=== PATIENT | female | born 1955 | race Hispanic/Latino ===

== ENCOUNTER 2017-08-08 17:55 | Inpatient (IN) | payer SELFPAY ==
[~2017-08-08] VITALS: Ht 172.7 cm; Wt 115.5 kg
[2017-08-08] MEDS ORDERED: SODIUM CHLORIDE 0.9% 1000ML 1,000 ML IV STA (18:43)
[2017-08-08] MEDS ORDERED: ASPIRIN 81 MG CHEW TAB PO ONE (18:45)
[2017-08-08] MEDS ORDERED: CEFTRIAXONE SOD 1 GM VIAL IM ONE (18:45)
[2017-08-08 19:35] LABS: BILIRUBIN,URINE 1+ (NEGATIVE); COLOR,URINE YELLOW (YELLOW); KETONES,URINE NEGATIVE (NEGATIVE); LEUKOCYTE ESTERASE ,URINE 1+ (NEGATIVE); URINE UROBILINOGEN 8 mg/dL (0.2 - 1)
[2017-08-08 19:36] LABS: CLARITY,URINE SL CLOUDY (CLEAR); NITRITE,URINE POSITIVE (NEGATIVE); PROTEIN,URINE DIPSTICK 2+ (NEGATIVE)
[2017-08-08 19:51] LABS: BACTERIA,URINE MANY /HPF; EPITHELIAL CELLS,URINE FEW /LPF; MUCUS,URINE FEW (RARE)
--- NOTE | 2017-08-08 21:56 | Diagnostic Imaging Report ---
EXAM: CHEST SINGLE (PORTABLE), AP 1 view INDICATION: Fall, fever COMPARISON: None FINDINGS: LINES/TUBES: None LUNGS: No consolidations or edema. PLEURA: No effusions or pneumothorax. HEART AND MEDIASTINUM: Normal size and contour. BONES AND SOFT TISSUES: No acute findings. IMPRESSION: No evidence of pneumonia. Signed by: Dr. Abbey Castelan M.D. on 08/08/2017 9:52 PM
[2017-08-08 22:44] LABS: BASOPHILS % 0.2 % (0.0-1.0); HEMATOCRIT 40.2 % (34.2-44.1); HEMOGLOBIN 13.4 g/dL (12.0-16.0); LYMPHOCYTES % 5.2 % (18.0-39.1); MEAN CORPUSCULAR HEMOGLOBIN 29.3 pg (28-32); MEAN CORPUSCULAR HGB CONC 33.3 g/dL (31-35); MONOCYTES # (AUTO) 1.4 (0.2-0.8); MONOCYTES % 7.7 % (4.4-11.3); NEUTROPHILS # (AUTO) 15.9 (2.1-6.9); NEUTROPHILS % 86.4 % (38.7-80.0); PLATELET COUNT 185 x10e3/uL (140-360); RED BLOOD COUNT 4.57 x10e6/uL (3.6-5.1)
[2017-08-08 22:59] LABS: INR 1.17
[2017-08-08 23:13] LABS: ALANINE AMINOTRANSFERASE 24 IU/L (0-55); ALBUMIN 3.4 g/dL (3.5-5.0); ALBUMIN/GLOBULIN RATIO 0.8 (0.8-2.0); ALKALINE PHOSPHATASE 120 IU/L (40-150); AMYLASE 31 U/L (25-125); ANION GAP 17.2 mmol/L (8-16); BLOOD UREA NITROGEN 25 mg/dL (7-26); BUN/CREATININE RATIO 18 (6-25); CALCIUM 9.8 mg/dL (8.4-10.2); CARBON DIOXIDE 22 mmol/L (22-29); CHLORIDE 99 mmol/L (98-107); CREATINE KINASE 2355 IU/L (29-168); CREATININE, SERUM 1.36 mg/dL (0.57-1.11); EST GLOMERULAR FILTRATION RATE 39 ML/MIN (60-); GLUCOSE 125 mg/dL (74-118); POTASSIUM 3.2 mmol/L (3.5-5.1); SODIUM 135 mmol/L (136-145)
[2017-08-08 23:17] LABS: LIPASE < 4 U/L (8-78)
[2017-08-08] MEDS ORDERED: KCL 20MEQ/.9 SOD CHL 1,000 ML IV ONE (23:30)
[2017-08-09] VITALS (8 sets, daily range): BP systolic 116–187; BP diastolic 55–80
--- NOTE | 2017-08-09 00:51 | Diagnostic Imaging Report ---
EXAM: CT ABDOMEN AND PELVIS without IV CONTRAST INDICATION: Fell down this morning, left-sided abdominal pain COMPARISON: None TECHNIQUE: The abdomen and pelvis were scanned using a multidetector helical scanner. Coronal and sagittal reformations were obtained. Routine protocol performed. IV Contrast: None Oral Contrast: Water CTDIvol has been reviewed. It is below the limits set by the Radiation Protocol Committee (RPC). FINDINGS: LOWER THORAX: No consolidations LIVER: No masses BILIARY: Normal gallbladder. No ductal dilation. SPLEEN: No masses PANCREAS: No masses ADRENALS: No nodules RIGHT KIDNEY: No nephroureterolithiasis or hydronephrosis. LEFT KIDNEY: No nephroureterolithiasis or hydronephrosis. Nonspecific left perinephric fat stranding. GI TRACT: Focal thickening of the proximal sigmoid colon. Colonic diverticulosis, predominantly of the descending colon and sigmoid colon. Surgical changes of appendectomy. VESSELS: Mild atherosclerotic changes of the abdominal aorta without aneurysm. PERITONEUM/RETROPERITONEUM: No free air or fluid. Surgical changes of ventral hernia repair. LYMPH NODES: No lymphadenopathy REPRODUCTIVE ORGANS: Normal BLADDER: Normal SOFT TISSUES: Normal BONES: No suspicious bone lesions. IMPRESSION: Asymmetric fat stranding around the left kidney is nonspecific. Please correlate for possible pyelonephritis. Nonspecific focal thickening of the sigmoid colon. The differential includes chronic diverticulitis or mass. Recommend correlation with patient's history and possible nonemergent GI consult. There is no evidence of acute diverticulitis. No evidence of acute traumatic injury to the abdomen or pelvis. Signed by: Dr. Abbey Castelan M.D. on 08/09/2017 12:48 AM
[2017-08-09] MEDS ORDERED: MORPHINE SULFATE 2 MG/ML SYR IV PRN (01:00)
[2017-08-09] MEDS ORDERED: ONDANSETRON HCL INJ 2 MG/ML VIAL IV PRN (01:00)
[2017-08-09] MEDS ORDERED: DEXTROSE 50% SYRINGE 50 ML IV PRN (01:15)
[2017-08-09] MEDS: HYDRALAZINE HCL 20 MG/ML VIAL IV PRN ×4 (02:30→22:00)
[2017-08-09] MEDS: ACETAMINOPHEN 325 MG TAB PO PRN ×2 (02:35→09:12)
[2017-08-09] MEDS: FAMOTIDINE 20 MG/2 ML VIAL IV SCH ×2 (02:35→09:12)
[2017-08-09] MEDS: METRONIDAZOLE 500MG/NS 100ML 100 ML IV SCH ×4 (05:41→23:42)
[2017-08-09 07:29] LABS: CREATINE KINASE MB 6.1 ng/mL (0-5.0)
[2017-08-09] MEDS: INSULIN REGULAR, HUMAN 100 UNIT/1 ML 3ML VIAL SQ SCH ×4 (07:30→21:00)
[2017-08-09] MEDS: ASPIRIN 81 MG ENTERIC COATED PO SCH (08:06)
[2017-08-09] MEDS: SODIUM CHLORIDE 0.9% 1000ML 1,000 ML IV SCH (09:06)
[2017-08-09 16:05] LABS: CREATINE KINASE MB 7.6 ng/mL (0-5.0)
[2017-08-09] MEDS: FAMOTIDINE 20 MG TAB PO SCH (17:04)
[2017-08-09] MEDS: LISINOPRIL 10 MG TAB PO SCH (17:04)
[2017-08-09] MEDS: METFORMIN HCL 500 MG TAB PO SCH (17:04)
[2017-08-09 22:58] LABS: CREATINE KINASE MB 6.9 ng/mL (0-5.0)
[2017-08-10] VITALS (7 sets, daily range): BP systolic 156–182; BP diastolic 69–82
[2017-08-10] MEDS: SODIUM CHLORIDE 0.9% 1000ML 1,000 ML IV SCH ×3 (01:43→15:32)
[2017-08-10] MEDS: ACETAMINOPHEN 325 MG TAB PO PRN (01:43)
[2017-08-10] MEDS: METRONIDAZOLE 500MG/NS 100ML 100 ML IV SCH ×3 (05:54→18:12)
[2017-08-10] MEDS: HYDRALAZINE HCL 20 MG/ML VIAL IV PRN (06:27)
[2017-08-10 06:51] LABS: BASOPHILS % 0.2 % (0.0-1.0); EOSINOPHILS % 0.1 % (0.0-6.0); HEMATOCRIT 34.6 % (34.2-44.1); HEMOGLOBIN 11.2 g/dL (12.0-16.0); LYMPHOCYTES # (AUTO) 0.6 (1.0-3.2); LYMPHOCYTES % 7.7 % (18.0-39.1); MEAN CORPUSCULAR HEMOGLOBIN 29.2 pg (28-32); MEAN CORPUSCULAR HGB CONC 32.4 g/dL (31-35); MEAN CORPUSCULAR VOLUME 90.3 fL (81-99); MONOCYTES # (AUTO) 0.7 (0.2-0.8); MONOCYTES % 8.3 % (4.4-11.3); NEUTROPHILS # (AUTO) 6.8 (2.1-6.9); NEUTROPHILS % 83.2 % (38.7-80.0); PLATELET COUNT 155 x10e3/uL (140-360); RED BLOOD COUNT 3.83 x10e6/uL (3.6-5.1); RED CELL DISTRIBUTION WIDTH 13.5 % (11.7-14.4)
[2017-08-10 07:12] LABS: ALBUMIN 2.5 g/dL (3.5-5.0); ALBUMIN/GLOBULIN RATIO 0.7 (0.8-2.0); ANION GAP 12.3 mmol/L (8-16); CALCIUM 8.7 mg/dL (8.4-10.2); CHOL/HDL RATIO 3.9 (3.0-3.6); CREATININE, SERUM 1.18 mg/dL (0.57-1.11); POTASSIUM 3.3 mmol/L (3.5-5.1)
[2017-08-10] MEDS: INSULIN REGULAR, HUMAN 100 UNIT/1 ML 3ML VIAL SQ SCH ×4 (07:30→20:54)
[2017-08-10 07:34] LABS: MAGNESIUM 1.5 MG/DL (1.3-2.1)
[2017-08-10] MEDS: FAMOTIDINE 20 MG TAB PO SCH ×2 (07:45→17:00)
[2017-08-10] MEDS: METFORMIN HCL 500 MG TAB PO SCH ×2 (08:30→18:12)
[2017-08-10] MEDS: LISINOPRIL 10 MG TAB PO SCH ×2 (09:18→18:12)
[2017-08-10] MEDS: CEFTRIAXONE SOD 1 GM VIAL IV SCH ×2 (09:18→20:54)
[2017-08-10] MEDS: ASPIRIN 81 MG ENTERIC COATED PO SCH (09:18)
[2017-08-10] MEDS ORDERED: POTASSIUM CHLORIDE 20 MEQ TAB CR PO ONE (10:25)
[2017-08-11] VITALS (9 sets, daily range): BP systolic 160–192; BP diastolic 68–83
[2017-08-11] MEDS: SODIUM CHLORIDE 0.9% 1000ML 1,000 ML IV SCH (01:58)
[2017-08-11] MEDS: METRONIDAZOLE 500MG/NS 100ML 100 ML IV SCH ×4 (01:59→12:22)
[2017-08-11] MEDS: INSULIN REGULAR, HUMAN 100 UNIT/1 ML 3ML VIAL SQ SCH ×4 (07:30→20:22)
[2017-08-11] MEDS: FAMOTIDINE 20 MG TAB PO SCH ×2 (07:30→16:30)
[2017-08-11] MEDS: METFORMIN HCL 500 MG TAB PO SCH ×2 (08:36→17:00)
[2017-08-11] MEDS: LISINOPRIL 10 MG TAB PO SCH ×2 (09:41→17:00)
[2017-08-11] MEDS: CEFTRIAXONE SOD 1 GM VIAL IV SCH ×2 (09:41→20:39)
[2017-08-11] MEDS: ASPIRIN 81 MG ENTERIC COATED PO SCH (09:41)
[2017-08-11] MEDS: HYDRALAZINE HCL 20 MG/ML VIAL IV PRN ×2 (11:15→20:40)
[2017-08-11 13:13] LABS: BASOPHILS % 0.4 % (0.0-1.0); EOSINOPHILS % 0.7 % (0.0-6.0); HEMATOCRIT 37.4 % (34.2-44.1); HEMOGLOBIN 12.2 g/dL (12.0-16.0); LYMPHOCYTES # (AUTO) 0.8 (1.0-3.2); LYMPHOCYTES % 14.9 % (18.0-39.1); MEAN CORPUSCULAR HEMOGLOBIN 28.7 pg (28-32); MEAN CORPUSCULAR HGB CONC 32.6 g/dL (31-35); MONOCYTES # (AUTO) 0.7 (0.2-0.8); MONOCYTES % 12.6 % (4.4-11.3); PLATELET COUNT 177 x10e3/uL (140-360); RED BLOOD COUNT 4.25 x10e6/uL (3.6-5.1); RED CELL DISTRIBUTION WIDTH 13.6 % (11.7-14.4)
[2017-08-11 13:34] LABS: ALANINE AMINOTRANSFERASE 49 IU/L (0-55); ALBUMIN 2.7 g/dL (3.5-5.0); ALBUMIN/GLOBULIN RATIO 0.7 (0.8-2.0); ALKALINE PHOSPHATASE 97 IU/L (40-150); ANION GAP 15.4 mmol/L (8-16); BLOOD UREA NITROGEN 17 mg/dL (7-26); BUN/CREATININE RATIO 21 (6-25); CALCIUM 8.8 mg/dL (8.4-10.2); CARBON DIOXIDE 18 mmol/L (22-29); CHLORIDE 110 mmol/L (98-107); CREATINE KINASE 1497 IU/L (29-168); CREATININE, SERUM 0.82 mg/dL (0.57-1.11); EST GLOMERULAR FILTRATION RATE > 60 ML/MIN (60-); GLUCOSE 94 mg/dL (74-118); POTASSIUM 3.4 mmol/L (3.5-5.1); SODIUM 140 mmol/L (136-145)
[2017-08-11] MEDS ORDERED: POTASSIUM CHLORIDE 20 MEQ TAB CR PO ONE (17:30)
[2017-08-12] MEDS: HYDRALAZINE HCL 20 MG/ML VIAL IV PRN ×2 (03:42→20:50)
[2017-08-12 03:46] VITALS: BP 180/95
[2017-08-12 07:01] LABS: BASOPHILS % 0.3 % (0.0-1.0); EOSINOPHILS # (AUTO) 0.1 (0.0-0.4); HEMATOCRIT 35.4 % (34.2-44.1); HEMOGLOBIN 11.7 g/dL (12.0-16.0); LYMPHOCYTES # (AUTO) 1.1 (1.0-3.2); LYMPHOCYTES % 16.8 % (18.0-39.1); MEAN CORPUSCULAR HEMOGLOBIN 28.9 pg (28-32); MEAN CORPUSCULAR HGB CONC 33.1 g/dL (31-35); MEAN CORPUSCULAR VOLUME 87.4 fL (81-99); MONOCYTES # (AUTO) 0.6 (0.2-0.8); MONOCYTES % 10.1 % (4.4-11.3); NEUTROPHILS # (AUTO) 4.5 (2.1-6.9); NEUTROPHILS % 71.3 % (38.7-80.0); PLATELET COUNT 198 x10e3/uL (140-360); RED BLOOD COUNT 4.05 x10e6/uL (3.6-5.1); RED CELL DISTRIBUTION WIDTH 13.7 % (11.7-14.4)
[2017-08-12 07:23] VITALS: BP 182/77
[2017-08-12] MEDS: FAMOTIDINE 20 MG TAB PO SCH ×2 (07:30→16:30)
[2017-08-12] MEDS: INSULIN REGULAR, HUMAN 100 UNIT/1 ML 3ML VIAL SQ SCH ×4 (07:30→20:51)
[2017-08-12 07:39] LABS: ALANINE AMINOTRANSFERASE 44 IU/L (0-55); ALBUMIN 2.6 g/dL (3.5-5.0); ALBUMIN/GLOBULIN RATIO 0.7 (0.8-2.0); ALKALINE PHOSPHATASE 90 IU/L (40-150); ANION GAP 11.3 mmol/L (8-16); BLOOD UREA NITROGEN 17 mg/dL (7-26); BUN/CREATININE RATIO 21 (6-25); CALCIUM 8.8 mg/dL (8.4-10.2); CARBON DIOXIDE 22 mmol/L (22-29); CHLORIDE 114 mmol/L (98-107); CREATINE KINASE 751 IU/L (29-168); EST GLOMERULAR FILTRATION RATE > 60 ML/MIN (60-); GLUCOSE 93 mg/dL (74-118); POTASSIUM 3.3 mmol/L (3.5-5.1); SODIUM 144 mmol/L (136-145)
[2017-08-12] MEDS: METFORMIN HCL 500 MG TAB PO SCH ×2 (08:30→17:08)
[2017-08-12 08:54] VITALS: BP 182/20
[2017-08-12] MEDS: CEFTRIAXONE SOD 1 GM VIAL IV SCH ×2 (09:21→20:50)
[2017-08-12] MEDS: ASPIRIN 81 MG ENTERIC COATED PO SCH (09:22)
[2017-08-12] MEDS: LISINOPRIL 10 MG TAB PO SCH ×2 (09:22→17:08)
[2017-08-12] MEDS ORDERED: POTASSIUM CHLORIDE 10 MEQ TABCR PO ONE (10:30)
[2017-08-12] MEDS ORDERED: FUROSEMIDE INJ 10 MG/ML 4 ML VIAL IV ONE (11:00)
[2017-08-12 12:00] VITALS: BP 202/84
[2017-08-12 20:33] VITALS: BP 194/88
[2017-08-13] VITALS (7 sets, daily range): BP systolic 159–212; BP diastolic 71–93
[2017-08-13] MEDS: HYDRALAZINE HCL 20 MG/ML VIAL IV PRN (05:15)
[2017-08-13 07:09] LABS: BASOPHILS % 0.5 % (0.0-1.0); EOSINOPHILS # (AUTO) 0.1 (0.0-0.4); EOSINOPHILS % 1.8 % (0.0-6.0); HEMATOCRIT 35.9 % (34.2-44.1); HEMOGLOBIN 11.7 g/dL (12.0-16.0); LYMPHOCYTES % 18.4 % (18.0-39.1); MEAN CORPUSCULAR HGB CONC 32.6 g/dL (31-35); MEAN CORPUSCULAR VOLUME 89.1 fL (81-99); MONOCYTES # (AUTO) 0.6 (0.2-0.8); MONOCYTES % 10.3 % (4.4-11.3); NEUTROPHILS # (AUTO) 3.8 (2.1-6.9); NEUTROPHILS % 67.9 % (38.7-80.0); PLATELET COUNT 215 x10e3/uL (140-360); RED BLOOD COUNT 4.03 x10e6/uL (3.6-5.1); RED CELL DISTRIBUTION WIDTH 13.6 % (11.7-14.4)
[2017-08-13] MEDS: INSULIN REGULAR, HUMAN 100 UNIT/1 ML 3ML VIAL SQ SCH ×4 (07:30→21:00)
[2017-08-13 07:40] LABS: ANION GAP 14.4 mmol/L (8-16); BLOOD UREA NITROGEN 19 mg/dL (7-26); BUN/CREATININE RATIO 23 (6-25); CALCIUM 8.7 mg/dL (8.4-10.2); CARBON DIOXIDE 22 mmol/L (22-29); CHLORIDE 113 mmol/L (98-107); CREATININE, SERUM 0.83 mg/dL (0.57-1.11); EST GLOMERULAR FILTRATION RATE > 60 ML/MIN (60-); GLUCOSE 96 mg/dL (74-118); POTASSIUM 3.4 mmol/L (3.5-5.1); SODIUM 146 mmol/L (136-145)
[2017-08-13] MEDS: CEFTRIAXONE SOD 1 GM VIAL IV SCH ×2 (07:57→20:41)
[2017-08-13] MEDS: FAMOTIDINE 20 MG TAB PO SCH ×2 (07:57→16:11)
[2017-08-13] MEDS: ASPIRIN 81 MG ENTERIC COATED PO SCH (07:57)
[2017-08-13] MEDS: METFORMIN HCL 500 MG TAB PO SCH ×2 (07:57→16:11)
[2017-08-13] MEDS: LISINOPRIL 10 MG TAB PO SCH (07:58)
[2017-08-13 08:26] LABS: EOSINOPHILS % (MANUAL) 2 % (0-7); LYMPHOCYTES % (MANUAL) 16 % (19-48); MONOCYTES % (MANUAL) 5 % (3.4-9.0); NEUTROPHILS % (MANUAL) 73 % (40-74)
[2017-08-13 08:27] LABS: ANISOCYTOSIS SLIG; PLATELET ESTIMATE ADEQUATE; PLATELET MORPHOLOGY COMMENT NORMAL; POIKILOCYTOSIS SLIGHT; RBC MORPHOLOGY COMMENT NORMAL
[2017-08-13] MEDS ORDERED: CLONIDINE HCL 0.1 MG TAB PO ONE (10:45)
[2017-08-13] MEDS: HYDRALAZINE HCL 25 MG TAB PO SCH ×2 (15:00→20:42)
[2017-08-13] MEDS: LISINOPRIL 20 MG TAB PO SCH (16:11)
[2017-08-14] VITALS (8 sets, daily range): BP systolic 137–280; BP diastolic 63–105
[2017-08-14] MEDS: HYDRALAZINE HCL 20 MG/ML VIAL IV PRN (05:59)
[2017-08-14 06:56] LABS: BASOPHILS % 0.5 % (0.0-1.0); EOSINOPHILS # (AUTO) 0.2 (0.0-0.4); EOSINOPHILS % 2.9 % (0.0-6.0); HEMATOCRIT 35.5 % (34.2-44.1); HEMOGLOBIN 11.5 g/dL (12.0-16.0); LYMPHOCYTES # (AUTO) 1.3 (1.0-3.2); LYMPHOCYTES % 20.8 % (18.0-39.1); MEAN CORPUSCULAR HEMOGLOBIN 28.9 pg (28-32); MEAN CORPUSCULAR HGB CONC 32.4 g/dL (31-35); MEAN CORPUSCULAR VOLUME 89.2 fL (81-99); MONOCYTES # (AUTO) 0.6 (0.2-0.8); MONOCYTES % 8.9 % (4.4-11.3); NEUTROPHILS # (AUTO) 4.1 (2.1-6.9); NEUTROPHILS % 66.4 % (38.7-80.0); PLATELET COUNT 225 x10e3/uL (140-360); RED BLOOD COUNT 3.98 x10e6/uL (3.6-5.1); RED CELL DISTRIBUTION WIDTH 13.5 % (11.7-14.4)
[2017-08-14 07:11] LABS: ANION GAP 12.5 mmol/L (8-16); BLOOD UREA NITROGEN 19 mg/dL (7-26); BUN/CREATININE RATIO 23 (6-25); CALCIUM 8.7 mg/dL (8.4-10.2); CARBON DIOXIDE 24 mmol/L (22-29); CHLORIDE 111 mmol/L (98-107); CREATININE, SERUM 0.83 mg/dL (0.57-1.11); EST GLOMERULAR FILTRATION RATE > 60 ML/MIN (60-); GLUCOSE 92 mg/dL (74-118); POTASSIUM 3.5 mmol/L (3.5-5.1); SODIUM 144 mmol/L (136-145)
[2017-08-14] MEDS: INSULIN REGULAR, HUMAN 100 UNIT/1 ML 3ML VIAL SQ SCH ×4 (07:30→20:27)
[2017-08-14] MEDS: HYDRALAZINE HCL 25 MG TAB PO SCH ×3 (07:35→20:40)
[2017-08-14] MEDS: LISINOPRIL 20 MG TAB PO SCH ×2 (07:35→16:12)
[2017-08-14] MEDS: FAMOTIDINE 20 MG TAB PO SCH ×2 (08:14→15:46)
[2017-08-14] MEDS: ASPIRIN 81 MG ENTERIC COATED PO SCH (08:15)
[2017-08-14] MEDS: CEFTRIAXONE SOD 1 GM VIAL IV SCH ×2 (08:15→20:40)
[2017-08-14] MEDS: METFORMIN HCL 500 MG TAB PO SCH ×2 (08:15→16:11)
[2017-08-14 08:27] LABS: EOSINOPHILS % (MANUAL) 1 % (0-7); LYMPHOCYTES % (MANUAL) 19 % (19-48); MONOCYTES % (MANUAL) 9 % (3.4-9.0); NEUTROPHILS % (MANUAL) 67 % (40-74); PLATELET ESTIMATE ADEQUATE; PLATELET MORPHOLOGY COMMENT NORMAL; RBC MORPHOLOGY COMMENT NORMAL
[2017-08-14] MEDS: METOPROLOL TARTRATE 25 MG TAB PO SCH ×2 (08:30→21:00)
[2017-08-14] MEDS: CLONIDINE HCL 0.2 MG TAB PO SCH ×3 (08:30→20:40)
[2017-08-14] MEDS ORDERED: AMLODIPINE BESYLATE 5 MG TAB PO SCH (09:00)
[2017-08-15] VITALS: BP 133/60
[2017-08-15 04:00] VITALS: BP 139/65
[2017-08-15] MEDS: INSULIN REGULAR, HUMAN 100 UNIT/1 ML 3ML VIAL SQ SCH ×3 (07:30→16:11)
[2017-08-15 07:46] VITALS: BP 169/77
[2017-08-15] MEDS: FAMOTIDINE 20 MG TAB PO SCH ×2 (07:50→16:37)
[2017-08-15] MEDS: METFORMIN HCL 500 MG TAB PO SCH ×2 (07:50→16:37)
[2017-08-15] MEDS: LISINOPRIL 20 MG TAB PO SCH ×2 (09:00→16:37)
[2017-08-15] MEDS: ASPIRIN 81 MG ENTERIC COATED PO SCH (09:00)
[2017-08-15] MEDS: METOPROLOL TARTRATE 25 MG TAB PO SCH (09:00)
[2017-08-15] MEDS: CEFTRIAXONE SOD 1 GM VIAL IV SCH (09:00)
[2017-08-15] MEDS: HYDRALAZINE HCL 25 MG TAB PO SCH ×2 (09:00→15:00)
[2017-08-15] MEDS: CLONIDINE HCL 0.2 MG TAB PO SCH ×2 (09:00→15:00)
[2017-08-15 11:58] VITALS: BP 138/64
[2017-08-15 12:32] VITALS: BP 138/64
[2017-08-15 16:15] VITALS: BP 138/63
[2017-08-15] MEDS ORDERED: LISINOPRIL10 MG PO (17:05)
[2017-08-15] MEDS ORDERED: HYDRALAZINE HCL10 MG PO (17:06)
[2017-08-15] MEDS ORDERED: CLONIDINE HCL0.2 MG PO (17:06)
== END 2017-08-15 17:45 | disposition home or self-care (01) | DRG 683 ==
LOC: ER 17:55 → ERHOLD 08-09 01:05 → MED/SURG3 08-09 01:16
DX: N17.9 Acute kidney failure, unspecified (principal); M62.82 Rhabdomyolysis; N12 Tubulo-interstitial nephritis, not specified as acute or chronic; I10 Essential (primary) hypertension; E11.9 Type 2 diabetes mellitus without complications; W01.0XXA Fall on same level from slipping, tripping and stumbling without subsequent striking against object, initial encounter; Y92.009 Unspecified place in unspecified non-institutional (private) residence as the place of occurrence of the external cause; R60.9 Edema, unspecified
CPT/HCPCS: 36415; 71045; 74176; 80048; 80053; 80061; 81001; 82150; 82550; 82553; 82948; 83605; 83690; 83735; 84484; 85025; 85610; 85730; 87040; 87086; 87400; 93005; 96361; 96367; 96372; 99284; J0360; J0696; J1940; J2270; J2405; J7030

== ENCOUNTER 2017-08-21 01:35 | Emergency (ER) | payer OTHER ==
[~2017-08-21] VITALS: Ht 172.7 cm; Wt 115.2 kg
[~2017-08-21 01:35] MED LIST: CLONIDINE HCL0.2 MG PO; HYDRALAZINE HCL10 MG PO; LISINOPRIL10 MG PO
--- OUTSIDE RECORDS SUMMARY | 2017-08-21 01:38 | XMS REPORT ---
Author Author [facility] Address Unknown Phone Unavailable Care Team Providers Care Assisted Living Administrator Name Role Phone ADENIKE LOVE Unavailable Unavailable Problems This patient has no known problems. Allergies, Adverse Reactions, Alerts This patient has no known allergies or adverse reactions. Medications This patient has no known medications. Results Test Description Test Time Test Comments Text Results Atomic Results Result Comments CHEST SINGLE (PORTABLE) [place] [address] Patient Name: JUAN RENEE MR #: [id number] : 1955 Age/Sex: 62/F Req #: [id number] Adm Physician: Ordered by: CHARLI URRUTIA COAL TRAMMER Report #: [id number] Location: ER Room/Bed: Procedure: [id number] DX/CHEST SINGLE (PORTABLE) Exam Date: 08/08/17 Exam Time: 2129 REPORT STATUS: Signed EXAM: CHEST SINGLE (PORTABLE), AP 1 view INDICATION: Fall, fever COMPARISON: None FINDINGS: LINES/TUBES: None LUNGS: No consolidations or edema. PLEURA: No effusions or pneumothorax. HEART AND MEDIASTINUM: Normal size and contour. BONES AND SOFT TISSUES: No acute findings. IMPRESSION: No evidence of pneumonia. Signed by: Dr. Alexa Castelan M.D. on 08/08/2017 9:52 PM Dictated By: ALEXA CASTELAN MD 51 Transcribed By: LILIANA on 2151 COPY TO: CHARLI URRUTIA NP CT ABDOMEN/PELVIS WO [place] [address] Patient Name: JUAN RENEE MR #: [id number] : 1955 Age/Sex: 62/F Req # : [id number] Adm Physician: Ordered by: CHARLI URRUTIA NP Report #: [id number] Location: ER Room/Bed: Procedure: [id number] CT/CT ABDOMEN/PELVIS WO Exam Date: Exam Time: REPORT STATUS: Signed EXAM: CT ABDOMEN AND PELVIS without IV CONTRAST INDICATION: Fell down this morning, left-sided abdominal pain COMPARISON: None TECHNIQUE: The abdomen and pelvis were scanned using a multidetector helical scanner. Coronal and sagittal reformations were obtained. Routine protocol performed. IV Contrast: None Oral Contrast: Water CTDIvol has been reviewed. It is below the limits set by the Radiation Protocol Committee (RPC). FINDINGS: LOWER THORAX: No consolidations LIVER: No masses BILIARY: Normal gallbladder. No ductal dilation. SPLEEN: No masses PANCREAS: No masses ADRENALS: No nodules RIGHT KIDNEY: No nephroureterolithiasis or hydronephrosis. LEFT KIDNEY: No nephroureterolithiasis or hydronephrosis. Nonspecific left perinephric fat stranding. GI TRACT: Focal thickening of the proximal sigmoid colon. Colonic diverticulosis, predominantly of the descending colon and sigmoid colon. Surgical changes of appendectomy. VESSELS: Mild atherosclerotic changes of the abdominal aorta without aneurysm. PERITONEUM/ RETROPERITONEUM: No free air or fluid. Surgical changes of ventral hernia repair. LYMPH NODES: No lymphadenopathy REPRODUCTIVE ORGANS: Normal BLADDER: Normal SOFT TISSUES: Normal BONES: No suspicious bone lesions. IMPRESSION: Asymmetric fat stranding around the left kidney is nonspecific. Please correlate for possible pyelonephritis. Nonspecific focal thickening of the sigmoid colon. The differential includes chronic diverticulitis or mass. Recommend correlation with patient's history and possible nonemergent GI consult. There is no evidence of acute diverticulitis. No evidence of acute traumatic injury to the abdomen or pelvis. Signed by: Dr. Alexa Castelan M.D. on 08/09/2017 12:48 AM Dictated By: ALEXA CASTELAN MD Transcribed By: LILIANA on 08/09/1747 COPY TO: CHARLI URRUTIA NP
--- OUTSIDE RECORDS SUMMARY | 2017-08-21 01:38 | XMS REPORT | Continuity of Care Document ---
Author Author [facility] Organization [facility] Address [address] [place] [address] Phone Unavailable Care Team Providers Care Medical Malpractice Paralegal Name Role Phone NONSTAFF PCP Unavailable Insurance Providers Guarantor Fatimah Oneal Address [address] [place] [address] Email NONE Payer [employer] Policy Number [id number] Subscriber's Name Fatimah Oneal Relationship 18 Self / Same As Patient Advance Directives Directive Response Recorded Date/Time Does the patient have an advance directive? No 08/09/17 3:51am If yes, is advance directive on file with [facility]? No 08/09/17 3:51am If not on file with [facility] will patient provide a copy? No 08/09/17 3:51am Do you have a Directive to Physician? No 08/08/17 7:25pm Do you have a Medical Power of Bioprocess Development Engineer? No 08/08/17 7:25pm Do you have an out of hospital Do Not Resuscitate Order? No 08/08/17 7:25pm Do you have any special needs we should be aware of? No 08/08/17 7:25pm Do you have a support person here with you today? Yes 08/08/17 7:25pm Did patient receive Notice of Privacy Practices? Yes 08/08/17 7:25pm Did patient receive patient rights and responsibilities? Yes 08/08/17 7:25pm Problems Medical Problem Onset Date Status Fall Unknown Hypokalemia Unknown Pyelonephritis Unknown Rhabdomyolysis Unknown Weakness Unknown Medications Current Home Medications Medication Dose Units Route Directions Days Qty Instructions Start Date Clonidine Hcl 0.2 Mg Tablet Oral Three Times A Day 90 Hydralazine Hcl 10 Mg Tablet 50 Mg Oral Three Times A Day 90 Tab Lisinopril 10 Mg Tablet 20 Mg Oral Twice A Day 60 Tab Social History Social History Problem Response Recorded Date/Time Onset Date Status Hx Psychiatric Problems No 08/09/2017 3:51am Not Applicable Not Applicable Hx Eating Disorder No 08/09/2017 3:51am Not Applicable Not Applicable Hx Substance Use Disorder No 08/09/2017 3:51am Not Applicable Not Applicable Hx Depression No 08/09/2017 3:51am Not Applicable Not Applicable Hx Alcohol Use No 08/09/2017 3:51am Not Applicable Not Applicable Hx Substance Use Treatment No 08/09/2017 3:51am Not Applicable Not Applicable Hx Physical Abuse No 08/09/2017 3:51am Not Applicable Not Applicable Smoking Status Start Date Stop Date Never Smoker Hospital Discharge Instructions No hospital discharge instruction information available. Plan of Care Discharge Date 08/15/17 5:45pm Disposition HOME, SELF-CARE Instructions/Education Provided Hypokalemia Pyelonephritis Prescriptions See Medication Section Additional Instructions/Education ADA Diet Follow up with Primary Care Physician Activity as tolerated Functional Status Query Response Date Recorded FUNCTIONAL STATUS . August 09, 2017 1:26pm Assistive Devices Straight Cane August 09, 2017 3:30am Ambulation Ability Minimum Assistance August 09, 2017 3:30am Toileting Ability Minimum Assistance August 15, 2017 1:29pm Allergies, Adverse Reactions, Alerts Allergen Type Severity Reaction Status Last Updated Amlodipine Allergy Severe SWOLLEN TONGUE Active 08/08/17 Immunizations No immunization information available. Vital Signs Acute Vital Signs Vital Response Date/Time Temperature (Fahrenheit) 96.1 degrees F (97.6 - 99.5) 08/15/2017 4:15pm Pulse Pulse Rate (adult) 53 bpm (60 - 90) 08/15/2017 4:15pm Respiratory Rate 18 bpm (12 - 24) 08/15/2017 4:15pm Blood Pressure 138/63 mm Hg 08/15/2017 4:15pm Height 5 ft 8 in 08/08/2017 6:20pm Weight 254.56 lb 08/15/2017 12:35am Body Mass Index 38.7 kg/m^2 08/15/2017 12:35am Results Laboratory Results Test Name Result Units Flags Reference Collection Date/Time Result Date/ Time Comments White Blood Count 6.19 x10e3/uL 4.8-10.8 08/14/2017 6:36am 08/14/2017 7 :08am Red Blood Count 3.98 x10e6/uL 3.6-5.1 08/14/2017 6:36am 08/14/2017 7: 08am Hemoglobin 11.5 g/dL L 12.0-16.0 08/14/2017 6:36am 08/14/2017 7:08am Hematocrit 35.5 % 34.2-44.1 08/14/2017 6:36am 08/14/2017 7:08am Mean Corpuscular Volume 89.2 fL 81-99 08/14/2017 6:36am 08/14/2017 7: 08am Mean Corpuscular Hemoglobin 28.9 pg 28-32 08/14/2017 6:36am 08/14/2017 7:08am Mean Corpuscular Hemoglobin Concent 32.4 g/dL 31-35 08/14/2017 6:36am 08/14/2017 7:08am Red Cell Distribution Width 13.5 % 11.7-14.4 08/14/2017 6:36am 2017 7:08am Platelet Count 225 x10e3/uL 140-360 08/14/2017 6:36am 08/14/2017 7: 08am Neutrophils (%) (Auto) 66.4 % 38.7-80.0 08/14/2017 6:36am 08/14/2017 7: 08am Lymphocytes (%) (Auto) 20.8 % 18.0-39.1 08/14/2017 6:36am 08/14/2017 7: 08am Monocytes (%) (Auto) 8.9 % 4.4-11.3 08/14/2017 6:36am 08/14/2017 7: 08am Eosinophils (%) (Auto) 2.9 % 0.0-6.0 08/14/2017 6:36am 08/14/2017 7: 08am Basophils (%) (Auto) 0.5 % 0.0-1.0 08/14/2017 6:36am 08/14/2017 7:08am IM GRANULOCYTES % 0.5 % 0.0-1.0 08/14/2017 6:36am 08/14/2017 7:08am Neutrophils # (Auto) 4.1 2.1-6.9 08/14/2017 6:36am 08/14/2017 7:08am Lymphocytes # (Auto) 1.3 1.0-3.2 08/14/2017 6:36am 08/14/2017 7:08am Monocytes # (Auto) 0.6 0.2-0.8 08/14/2017 6:36am 08/14/2017 7:08am Eosinophils # (Auto) 0.2 0.0-0.4 08/14/2017 6:36am 08/14/2017 7:08am Basophils # (Auto) 0.0 0.0-0.1 08/14/2017 6:36am 08/14/2017 7:08am Absolute Immature Granulocyte (auto 0.03 x10e3/uL 0-0.1 08/14/2017 6: 36am 08/14/2017 7:08am Differential Total Cells Counted 100 08/14/2017 6:36am 08/14/2017 8 :27am Neutrophils % (Manual) 67 % 40-74 08/14/2017 6:36am 08/14/2017 8:27am Lymphocytes % (Manual) 19 % 19-48 08/14/2017 6:36am 08/14/2017 8:27am Monocytes % (Manual) 9 % 3.4-9.0 08/14/2017 6:36am 08/14/2017 8:27am Eosinophils % (Manual) 1 % 0-7 08/14/2017 6:36am 08/14/2017 8:27am Basophils % (Manual) 1 % 0-1.5 08/13/2017 6:39am 08/13/2017 8:27am Reactive Lymphocytes 4 08/14/2017 6:36am 08/14/2017 8:27am Platelet Estimate ADEQUATE 08/14/2017 6:36am 08/14/2017 8:27am Platelet Morphology Comment NORMAL 08/14/2017 6:36am 08/14/2017 8: 27am Poikilocytosis SLIGHT 08/13/2017 6:39am 08/13/2017 8:27am Anisocytosis SLIG 08/13/2017 6:39am 08/13/2017 8:27am Red Cell Morphology Comment NORMAL 08/14/2017 6:36am 08/14/2017 8: 27am Prothrombin Time 14.0 seconds 11.9-14.5 08/08/2017 9:40pm 08/08/2017 11 :04pm Prothromb Time International Ratio 1.17 08/08/2017 9:40pm 2017 11:04pm Oral Anticoagulant Therapy INR Values: 1. Low Intensity Therapy 1.5 - 2.0 2. Moderate Intensity Therapy 2.0 - 3.0 3. High Intensity Therapy(1) 2.5 - 3.5 4. High Intensity Therapy(2) 3.0 - 4.0 5. Panic Value INR > 5.0 Activated Partial Thromboplast Time 32.0 seconds 23.8-35.5 08/08/2017 9: 40pm 08/08/2017 11:04pm Urine Color YELLOW YELLOW 08/08/2017 6:45pm 08/08/2017 7:36pm Urine Clarity SL CLOUDY CLEAR 08/08/2017 6:45pm 08/08/2017 7:36pm Urine Specific [place] 1.015 1.010-1.025 08/08/2017 6:45pm 2017 7:36pm Urine pH 5 5 - 7 08/08/2017 6:45pm 08/08/2017 7:36pm Urine Leukocyte Esterase 1+ H NEGATIVE 08/08/2017 6:45pm 08/08/2017 7: 36pm Urine Nitrite POSITIVE H NEGATIVE 08/08/2017 6:45pm 08/08/2017 7:36pm Urine Protein 2+ H NEGATIVE 08/08/2017 6:45pm 08/08/2017 7:36pm Urine Glucose (UA) NEGATIVE NEGATIVE 08/08/2017 6:45pm 08/08/2017 7: 36pm Urine Ketones NEGATIVE NEGATIVE 08/08/2017 6:45pm 08/08/2017 7:36pm Urine Urobilinogen 8 mg/dL H 0.2 - 1 08/08/2017 6:45pm 08/08/2017 7: 36pm Urine Bilirubin 1+ H NEGATIVE 08/08/2017 6:45pm 08/08/2017 7:36pm Urine Blood 4+ H NEGATIVE 08/08/2017 6:45pm 08/08/2017 7:36pm Urine WBC 11-20 /HPF H 0-5 08/08/2017 6:45pm 08/08/2017 7:51pm Urine RBC 11-20 /HPF H 0-5 08/08/2017 6:45pm 08/08/2017 7:51pm Urine Bacteria MANY /HPF H NONE 08/08/2017 6:45pm 08/08/2017 7:51pm Urine Epithelial Cells FEW /LPF NONE 08/08/2017 6:45pm 08/08/2017 7: 51pm Urine Mucus FEW H RARE 08/08/2017 6:45pm 08/08/2017 7:51pm Sodium Level 144 mmol/L 136-145 08/14/2017 6:36am 08/14/2017 7:20am Potassium Level 3.5 mmol/L 3.5-5.1 08/14/2017 6:36am 08/14/2017 7:20am Chloride Level 111 mmol/L H 98-107 08/14/2017 6:36am 08/14/2017 7:20am Influenza Virus Types A,B Antigen NEGATIVE NEGATIVE 08/09/2017 12: 30am 08/09/2017 2:17am Carbon Dioxide Level 24 mmol/L -08/14/2017 6:36am 08/14/2017 7: 20am Anion Gap 12.5 mmol/L 8-16 08/14/2017 6:36am 08/14/2017 7:20am Blood Urea Nitrogen 19 mg/dL 7-08/14/2017 6:36am 08/14/2017 7:20am Creatinine 0.83 mg/dL 0.57-1.11 08/14/2017 6:36am 08/14/2017 7:20am BUN/Creatinine Ratio 23 6-25 08/14/2017 6:36am 08/14/2017 7:20am Estimat Glomerular Filtration Rate > 60 ML/MIN 60- 08/14/2017 6:36am 7:20am Ranges were taken from the National Kidney Disease Education Program and the National Kidney Foundation literature. Reference ranges: 60 or greater: Normal 16-59 (for 3 consecutive months): Chronic kidney disease 15 or less: Kidney failure Glucose Level 92 mg/dL 74-118 08/14/2017 6:36am 08/14/2017 7:20am Calcium Level 8.7 mg/dL 8.4-10.2 08/14/2017 6:36am 08/14/2017 7:20am Bedside Glucose 105 mg/dL 70-120 08/15/2017 3:04pm 08/15/2017 3:29pm Meter ID: [id number] Lactic Acid Level 13.2 MG/DL 4.5-19.8 08/08/2017 9:40pm 08/08/2017 11: 04pm Magnesium Level 1.5 MG/DL 1.3-2.1 08/10/2017 6:23am 08/10/2017 7:39am Total Bilirubin 0.4 mg/dL 0.2-1.2 08/12/2017 6:39am 08/12/2017 7:52am Aspartate Amino Transf (AST/SGOT) 51 IU/L H 5-34 08/12/2017 6:39am 08/12 7:52am Alanine Aminotransferase (ALT/SGPT) 44 IU/L 0-55 08/12/2017 6:39am 7:52am Total Protein 6.1 g/dL L 6.5-8.1 08/12/2017 6:39am 08/12/2017 7:52am Albumin 2.6 g/dL L 3.5-5.0 08/12/2017 6:39am 08/12/2017 7:52am Globulin 3.5 g/dL 2.3-3.5 08/12/2017 6:39am 08/12/2017 7:52am Albumin/Globulin Ratio 0.7 L 0.8-2.0 08/12/2017 6:39am 08/12/2017 7: 52am Alkaline Phosphatase 90 IU/L 40-150 08/12/2017 6:39am 08/12/2017 7: 52am Triglycerides Level 110 MG/DL 0-149 08/10/2017 6:23am 08/10/2017 7: 15am Cholesterol Level 140 MD/DL 0-199 08/10/2017 6:23am 08/10/2017 7:15am Less than 200 mg/dL Low Risk 201 - 239 mg/dL Borderline Risk 240 mg/dl and greater High Risk LDL Cholesterol 82 MG/DL 60-130 08/10/2017 6:23am 08/10/2017 7:15am HDL Cholesterol 36 MG/DL L 40-60 08/10/2017 6:23am 08/10/2017 7:15am Cholesterol/HDL Ratio 3.9 H 3.0-3.6 08/10/2017 6:23am 08/10/2017 7: 15am Creatine Kinase 349 IU/L H 29-168 08/13/2017 6:39am 08/13/2017 8:08am Creatine Kinase MB 6.90 ng/mL H 0-5.0 08/09/2017 10:28pm 08/09/2017 11: 05pm Troponin I 0.084 ng/mL 0-0.300 08/09/2017 10:28pm 08/09/2017 11:05pm Amylase Level 31 U/L 25-125 08/08/2017 9:40pm 08/08/2017 11:17pm Lipase < 4 U/L L 8-78 08/08/2017 9:40pm 08/08/2017 11:17pm Microbiology Results Procedure Source Organism/Result Collection Date/Time Result Date/Time Result Status Blood Culture Blood NO GROWTH AFTER 5 DAYS, FINAL REPORT 08/08/2017 9:40pm 08/13/2017 10:34pm Final Procedures Procedure Status Date Provider(s) CT of abdomen and pelvis without contrast Active 08/08/17 CHARLI URRUTIA [facility] Encounters Encounter Location Arrival/Admit Date Discharge/Depart Date Attending Provider Discharged Inpatient [facility] 08/09/17 1:05am 08/15/17 5:45pm SAUNDRA LEWIS MD
[2017-08-21] MEDS ORDERED: PANTOPRAZOLE 40 MG 10ML VIAL IV STA (02:12)
[2017-08-21] MEDS ORDERED: ONDANSETRON HCL INJ 2 MG/ML VIAL IV STA (02:12)
[2017-08-21] MEDS ORDERED: MORPHINE SULFATE 2 MG/ML SYR IV STA (02:12)
[2017-08-21] MEDS ORDERED: HYDRALAZINE HCL 20 MG/ML VIAL IV STA (02:12)
[2017-08-21] MEDS ORDERED: SODIUM CHLORIDE 0.9% 500ML 500 ML IV ONE (02:15)
[2017-08-21 03:01] LABS: BASOPHILS # (AUTO) 0.1 (0.0-0.1); BASOPHILS % 0.3 % (0.0-1.0); EOSINOPHILS # (AUTO) 0.2 (0.0-0.4); EOSINOPHILS % 1.6 % (0.0-6.0); HEMATOCRIT 35.9 % (34.2-44.1); HEMOGLOBIN 11.8 g/dL (12.0-16.0); LYMPHOCYTES # (AUTO) 1.2 (1.0-3.2); LYMPHOCYTES % 8.1 % (18.0-39.1); MEAN CORPUSCULAR HEMOGLOBIN 29.2 pg (28-32); MEAN CORPUSCULAR HGB CONC 32.9 g/dL (31-35); MEAN CORPUSCULAR VOLUME 88.9 fL (81-99); MONOCYTES # (AUTO) 0.8 (0.2-0.8); MONOCYTES % 5.2 % (4.4-11.3); NEUTROPHILS # (AUTO) 12.4 (2.1-6.9); NEUTROPHILS % 84.4 % (38.7-80.0); PLATELET COUNT 314 x10e3/uL (140-360); RED BLOOD COUNT 4.04 x10e6/uL (3.6-5.1); RED CELL DISTRIBUTION WIDTH 13.6 % (11.7-14.4)
[2017-08-21 03:12] LABS: INR 1.19; PROTHROMBIN TIME 14.2 seconds (11.9-14.5)
[2017-08-21 03:13] LABS: PARTIAL THROMBOPLASTIN TIME 27.5 seconds (23.8-35.5)
[2017-08-21 03:17] LABS: BILIRUBIN,URINE NEGATIVE (NEGATIVE); CLARITY,URINE CLEAR (CLEAR); COLOR,URINE YELLOW (YELLOW); KETONES,URINE NEGATIVE (NEGATIVE); LEUKOCYTE ESTERASE ,URINE NEGATIVE (NEGATIVE); NITRITE,URINE NEGATIVE (NEGATIVE); PROTEIN,URINE DIPSTICK TRACE (NEGATIVE); URINE UROBILINOGEN 0.2 mg/dL (0.2 - 1)
--- NOTE | 2017-08-21 03:19 | Diagnostic Imaging Report ---
EXAMINATION: CHEST SINGLE (PORTABLE) INDICATION: Abdominal pain COMPARISON: 08/08/2017 FINDINGS: TUBES and LINES: None. LUNGS: Lungs are not well inflated. Lungs are clear. There is no evidence of pneumonia or pulmonary edema. PLEURA: No pleural effusion or pneumothorax. HEART AND MEDIASTINUM: The cardiomediastinal silhouette is unremarkable. BONES AND SOFT TISSUES: No acute osseous lesion. Soft tissues are unremarkable. UPPER ABDOMEN: No free air under the diaphragm. IMPRESSION: No acute thoracic abnormality. Signed by: Dr. Dino Mondragon M.D. on 08/21/2017 3:16 AM
[2017-08-21 03:22] LABS: ALANINE AMINOTRANSFERASE 14 IU/L (0-55); ALBUMIN 3.1 g/dL (3.5-5.0); ALBUMIN/GLOBULIN RATIO 0.9 (0.8-2.0); ALKALINE PHOSPHATASE 96 IU/L (40-150); AMYLASE 44 U/L (25-125); ANION GAP 13.8 mmol/L (8-16); BLOOD UREA NITROGEN 14 mg/dL (7-26); BUN/CREATININE RATIO 15 (6-25); CALCIUM 9.1 mg/dL (8.4-10.2); CARBON DIOXIDE 23 mmol/L (22-29); CHLORIDE 108 mmol/L (98-107); CREATINE KINASE 63 IU/L (29-168); CREATININE, SERUM 0.93 mg/dL (0.57-1.11); EST GLOMERULAR FILTRATION RATE > 60 ML/MIN (60-); GLUCOSE 123 mg/dL (74-118); LIPASE 14 U/L (8-78); MAGNESIUM 1.5 MG/DL (1.3-2.1); POTASSIUM 3.8 mmol/L (3.5-5.1); SODIUM 141 mmol/L (136-145)
[2017-08-21 03:31] LABS: BACTERIA,URINE RARE /HPF; EPITHELIAL CELLS,URINE FEW /LPF; WBC,URINE (MAN) 0-5 /HPF (0-5)
[2017-08-21] MEDS ORDERED: CLONIDINE HCL 0.1 MG TAB PO ONE (04:15)
[2017-08-21] MEDS ORDERED: CLONIDINE HCL 0.2 MG TAB ONE (04:16)
--- NOTE | 2017-08-21 04:57 | Diagnostic Imaging Report ---
EXAM: CT Abdomen and Pelvis WITH contrast INDICATION: Recent left pyelonephritis now with right upper quadrant pain. COMPARISON: 08/09/2017 TECHNIQUE: Abdomen and pelvis were scanned utilizing a multidetector helical scanner from the lung base to the pubic symphysis after administration of IV contrast. Coronal and sagittal reformations were obtained. Routine protocol was performed. Scan was performed when during portal venous phase. IV CONTRAST: 100 mL of Isovue-370 ORAL CONTRAST: Water RADIATION DOSE: Total DLP: 821.24 mGy*cm Estimated effective dose: (DLP x 0.015 x size factor) mSv COMPLICATIONS: None FINDINGS: LINES and TUBES: None. LOWER THORAX: Unremarkable HEPATOBILIARY: No focal hepatic lesions. No biliary ductal dilation. GALLBLADDER: No radio-opaque stones or sludge. No wall thickening. SPLEEN: No splenomegaly. PANCREAS: No focal masses or ductal dilatation. ADRENALS: No adrenal nodules KIDNEYS/URETERS: Kidneys enhance symmetrically. No hydronephrosis. No cystic or solid mass lesions. No stones. GI TRACT: Thickening and hyperemia of the distal small bowel/terminal ileum. There are diverticula within the colon without evidence of diverticulitis. There are post surgical changes of appendectomy. PELVIC ORGANS/BLADDER: Unremarkable. LYMPH NODES: No lymphadenopathy. VESSELS: Unremarkable. PERITONEUM / RETROPERITONEUM: Small amount of ascites and free pelvic fluid BONES: Unremarkable. SOFT TISSUES: Unremarkable. IMPRESSION: 1. Resolution of previously visualized left hilar pyelonephritis 2. Enteritis with predominant of terminal ileitis. 3. Reactive ascites. Signed by: Dr. Dino Mondragon M.D. on 08/21/2017 4:53 AM
[2017-08-21] MEDS ORDERED: SODIUM CHLORIDE 0.9% 1000ML 1,000 ML IV SCH (05:55)
[2017-08-21] MEDS ORDERED: MORPHINE SULFATE 2 MG/ML SYR IV PRN (06:00)
[2017-08-21] MEDS ORDERED: DEXTROSE 50% SYRINGE 50 ML IV PRN (06:00)
[2017-08-21] MEDS ORDERED: METRONIDAZOLE 500MG/NS 100ML 100 ML IV SCH (06:00)
[2017-08-21] MEDS ORDERED: ONDANSETRON HCL INJ 2 MG/ML VIAL IV PRN (06:00)
[2017-08-21] MEDS: PIPER-TAZ 3.375 GM 50 ML IV SCH (06:10)
[2017-08-21 06:44] VITALS: BP_SYST 134
[2017-08-21] MEDS ORDERED: SODIUM CHLORIDE 0.9% 50ML 50 ML ONE (07:00)
[2017-08-21] MEDS ORDERED: IOPAMIDOL 370 MG/ML 200 ML INFUS..BTL INJ ONE (07:00)
[2017-08-21] MEDS ORDERED: INSULIN REGULAR, HUMAN 100 UNIT/1 ML 3ML VIAL SQ SCH (07:30)
== END 2017-08-21 07:04 | disposition home or self-care (01) ==
LOC: ER 01:35
DX: R10.13 Epigastric pain (principal); R10.11 Right upper quadrant pain; A08.0 Rotaviral enteritis; A08.11 Acute gastroenteropathy due to Norwalk agent
CPT/HCPCS: 36415; 71045; 74177; 80053; 81001; 82150; 82550; 82553; 83605; 83690; 83735; 84484; 85025; 85610; 85730; 87040; 87086; 93005; 99284; J0360; J2270; J2405; J2543; J7030; J7040; Q9967

== ENCOUNTER 2018-09-08 12:44 | Inpatient (IN) | payer OTHER ==
[~2018-09-08] VITALS: Ht 172.7 cm; Wt 113.1 kg
[2018-09-08] MEDS ORDERED: ONDANSETRON HCL INJ 2MG/ML 2ML 2 MG/ML VIAL IV NR (13:10)
[2018-09-08] MEDS ORDERED: MORPHINE SULFATE INJ 4 MG/ML INJ 1ML IV NR (13:10)
[2018-09-08] MEDS ORDERED: SODIUM CHLORIDE 0.9% 500ML 500 ML IV STA (13:10)
[2018-09-08 13:30] LABS: BASOPHILS % 0.2 % (0.0-1.0); EOSINOPHILS # (AUTO) 0.1 (0.0-0.4); HEMATOCRIT 35.3 % (34.2-44.1); HEMOGLOBIN 11.5 g/dL (12.0-16.0); LYMPHOCYTES # (AUTO) 0.7 (1.0-3.2); LYMPHOCYTES % 11.3 % (18.0-39.1); MEAN CORPUSCULAR HEMOGLOBIN 29.7 pg (28-32); MEAN CORPUSCULAR HGB CONC 32.6 g/dL (31-35); MEAN CORPUSCULAR VOLUME 91.2 fL (81-99); MONOCYTES # (AUTO) 0.5 (0.2-0.8); MONOCYTES % 7.3 % (4.4-11.3); NEUTROPHILS # (AUTO) 5.1 (2.1-6.9); NEUTROPHILS % 78.9 % (38.7-80.0); PLATELET COUNT 211 x10e3/uL (140-360); RED BLOOD COUNT 3.87 x10e6/uL (3.6-5.1); RED CELL DISTRIBUTION WIDTH 12.3 % (11.7-14.4)
[2018-09-08 13:33] LABS: INR 0.88; PROTHROMBIN TIME 12.4 seconds (11.9-14.5)
[2018-09-08 13:34] LABS: PARTIAL THROMBOPLASTIN TIME 26.4 seconds (23.8-35.5)
[2018-09-08 13:43] LABS: ALANINE AMINOTRANSFERASE 479 IU/L (0-55); ALBUMIN 3.9 g/dL (3.5-5.0); ALKALINE PHOSPHATASE 141 IU/L (40-150); AMYLASE 54 U/L (25-125); ANION GAP 14.3 mmol/L (8-16); BLOOD UREA NITROGEN 28 mg/dL (7-26); BUN/CREATININE RATIO 21 (6-25); CALCIUM 9.7 mg/dL (8.4-10.2); CARBON DIOXIDE 23 mmol/L (22-29); CHLORIDE 107 mmol/L (98-107); CREATINE KINASE 92 IU/L (29-168); CREATININE, SERUM 1.31 mg/dL (0.57-1.11); EST GLOMERULAR FILTRATION RATE 41 ML/MIN (60-); GLUCOSE 115 mg/dL (74-118); LIPASE 30 U/L (8-78); POTASSIUM 4.3 mmol/L (3.5-5.1); SODIUM 140 mmol/L (136-145)
--- NOTE | 2018-09-08 13:58 | NUR ---
RADIOLOGY AT BEDSIDE AT THIS TIME FOR CXR.
[2018-09-08] MEDS ORDERED: METFORMIN HCL500 MG PO (14:01)
[2018-09-08] MEDS ORDERED: METOPROLOL TART50 MG PO (14:01)
--- NOTE | 2018-09-08 14:31 | Diagnostic Imaging Report ---
EXAMINATION: CHEST SINGLE (PORTABLE) INDICATION: Chest pain. COMPARISON: Chest radiograph 08/21/2017. FINDINGS: TUBES and LINES: None. LUNGS: Lungs are well inflated. There are bibasilar patchy opacities, likely atelectasis. There is no evidence of pneumonia or pulmonary edema. PLEURA: No pleural effusion or pneumothorax. HEART AND MEDIASTINUM: The cardiomediastinal silhouette is unremarkable. BONES AND SOFT TISSUES: No acute osseous abnormality. UPPER ABDOMEN: No free air under the diaphragm. IMPRESSION: Bibasilar patchy opacities, likely atelectasis. No acute radiographic abnormality. Signed by: Dr. Callum Cr MD on 09/08/2018 2:28 PM
[2018-09-08 14:36] LABS: CLARITY,URINE HAZY (CLEAR); COLOR,URINE YELLOW (YELLOW); KETONES,URINE NEGATIVE (NEGATIVE); LEUKOCYTE ESTERASE ,URINE NEGATIVE (NEGATIVE); NITRITE,URINE POSITIVE (NEGATIVE); PROTEIN,URINE DIPSTICK TRACE (NEGATIVE)
[2018-09-08 14:37] LABS: BACTERIA,URINE MANY /HPF; BILIRUBIN,URINE 1+ (NEGATIVE); RBC,URINE 0-5 /HPF (0-5); URINE UROBILINOGEN 1 mg/dL (0.2 - 1); WBC,URINE (MAN) 0-5 /HPF (0-5)
[2018-09-08 14:38] LABS: EPITHELIAL CELLS,URINE MODERATE /LPF
[2018-09-08] MEDS ORDERED: SODIUM CHLORIDE 0.9% 500ML 500 ML IV ONE (14:45)
[2018-09-08] MEDS ORDERED: IOPAMIDOL 370 MG/ML 200 ML INFUS..BTL INJ ONE (15:10)
[2018-09-08] MEDS ORDERED: SODIUM CHLORIDE 0.9% 50ML 50 ML ONE (15:10)
--- NOTE | 2018-09-08 15:26 | Diagnostic Imaging Report ---
EXAM: CT Abdomen and Pelvis WITH contrast INDICATION: Epigastric pain radiating to the back. COMPARISON: CT abdomen/pelvis 08/21/2017, CT Abdomen/Pelvis 08/08/2017. TECHNIQUE: Abdomen and pelvis were scanned utilizing a multidetector helical scanner from the lung base to the pubic symphysis after administration of IV contrast. Coronal and sagittal reformations were obtained. Routine protocol was performed. Scan was performed when during portal venous phase. IV CONTRAST: 100 mL of Isovue-370 ORAL CONTRAST: Water RADIATION DOSE: Total DLP: 869.7 mGy*cm Estimated effective dose: (DLP x 0.015 x size factor) mSv COMPLICATIONS: None FINDINGS: LINES and TUBES: None. LOWER THORAX: Unchanged 3 mm left lower lobe pulmonary nodule on series 2, image 7 and 2 mm subpleural nodule on series 2, image 10, compared to CT abdomen from 08/08/2017. HEPATOBILIARY: No focal hepatic lesions. No biliary ductal dilation. GALLBLADDER: No radio-opaque stones or sludge. No wall thickening. SPLEEN: No splenomegaly. PANCREAS: No focal masses or ductal dilatation. ADRENALS: No adrenal nodules KIDNEYS/URETERS: Kidneys enhance symmetrically. No hydronephrosis. No evidence of solid mass. Unchanged left renal cyst. GI TRACT: Interval resolution of enteritis compared to CT on 08/21/2017. Extensive sigmoid colonic diverticulosis without evidence of acute diverticulitis. Unchanged focal apparent wall thickening within the decompressed sigmoid colon, as seen on series 2, image 69. Status post appendectomy. PELVIC ORGANS/BLADDER: The bladder is decompressed. LYMPH NODES: No lymphadenopathy. VESSELS: Unremarkable. PERITONEUM / RETROPERITONEUM: Interval resolution of small volume ascites. BONES: No acute osseous abnormality. No suspicious lytic or blastic lesion. Mild degenerative changes of the visualized spine. There is an L2 hemangioma. SOFT TISSUES: Unremarkable. IMPRESSION: No acute CT findings in the abdomen or pelvis. Interval resolution of enteritis and reactive small volume ascites. Extensive sigmoid colonic diverticulosis without evidence of acute diverticulitis. Focal wall thickening within the decompressed sigmoid colon. Findings are unchanged compared to CT from 08/08/2017. This could reflect sequela of prior inflammation, correlation with colonoscopy is suggested to exclude underlying mass lesion. Signed by: Dr. Clalum Cr MD on 09/08/2018 3:23 PM
[2018-09-08] MEDS ORDERED: ONDANSETRON HCL INJ 2MG/ML 2ML 2 MG/ML VIAL IV PRN (16:00)
[2018-09-08] MEDS ORDERED: SODIUM CHLORIDE 0.9% 1000ML 1,000 ML IV ONE (16:00)
[2018-09-08] MEDS ORDERED: PIPER-TAZ 3.375 GM 50 ML IV SCH (16:00)
--- NOTE | 2018-09-08 18:12 | NUR ---
report received from Dino patient to arrive on floor via stretcher.
--- NOTE | 2018-09-08 19:10 | NUR ---
Report taken from morning rn.walking rounds done.admission assessment done.no resp.distress.iv #20 g to left ac.patent.Bp noted high.already taken home blood pressure medication.notified to consults.received orders from who covering for nathaly.paged to regarding contd.home med.waiting for the reply.oriented to the unit.bed locked and in lowest position.phone a and call light within reach.
[2018-09-08 19:20] VITALS: BP 187/80
[2018-09-08 20:00] VITALS: BP 187/78
[2018-09-08 21:20] VITALS: BP 187/78
[2018-09-08] MEDS: PIPER-TAZ 3.375 GM 50 ML IV SCH (22:01)
[2018-09-09] VITALS (8 sets, daily range): BP systolic 116–178; BP diastolic 58–81
[2018-09-09] MEDS: PIPER-TAZ 3.375 GM 50 ML IV SCH ×6 (04:18→22:45)
[2018-09-09 06:15] LABS: BASOPHILS % 0.5 % (0.0-1.0); EOSINOPHILS # (AUTO) 0.4 (0.0-0.4); EOSINOPHILS % 5.9 % (0.0-6.0); HEMATOCRIT 31.9 % (34.2-44.1); HEMOGLOBIN 10.5 g/dL (12.0-16.0); LYMPHOCYTES # (AUTO) 1.2 (1.0-3.2); LYMPHOCYTES % 19.7 % (18.0-39.1); MEAN CORPUSCULAR HEMOGLOBIN 30.1 pg (28-32); MEAN CORPUSCULAR HGB CONC 32.9 g/dL (31-35); MEAN CORPUSCULAR VOLUME 91.4 fL (81-99); MONOCYTES # (AUTO) 0.4 (0.2-0.8); MONOCYTES % 6.4 % (4.4-11.3); NEUTROPHILS # (AUTO) 4.2 (2.1-6.9); NEUTROPHILS % 67.2 % (38.7-80.0); PLATELET COUNT 185 x10e3/uL (140-360); RED BLOOD COUNT 3.49 x10e6/uL (3.6-5.1); RED CELL DISTRIBUTION WIDTH 12.6 % (11.7-14.4)
[2018-09-09 06:32] LABS: ALBUMIN 3.1 g/dL (3.5-5.0); ALBUMIN/GLOBULIN RATIO 0.9 (0.8-2.0); ANION GAP 13.4 mmol/L (8-16); CALCIUM 9.3 mg/dL (8.4-10.2); CREATININE, SERUM 1.53 mg/dL (0.57-1.11); POTASSIUM 4.4 mmol/L (3.5-5.1)
--- NOTE | 2018-09-09 06:50 | NUR ---
REPORT GIVEN TO THE ONCOMING RN.WALKING ROUNDS DONE.STABLE CONDITION
--- NOTE | 2018-09-09 07:00 | NUR ---
BEDSIDE ROUNDS COMPLETE NO DISTRESS NOTED, UPDATED ON POC VOICED UNDERSTANDING, CALL LIGHT IN REACH WILL CONTINUE TO MONITOR
[2018-09-09] MEDS ORDERED: DEXTROSE 50% SYRINGE 50 ML IV PRN (08:45)
[2018-09-09 08:59] LABS: ALBUMIN 3.2 g/dL (3.5-5.0); BILIRUBIN,DIRECT 0.7 mg/dL (0.0-0.5)
--- NOTE | 2018-09-09 10:25 | Diagnostic Imaging Report ---
EXAM: US ABDOMEN COMPLETE DATE: 09/09/2018 12:00 AM INDICATION:Right upper quadrant pain COMPARISON: CT abdomen/pelvis, 09/08/2018 FINDINGS: Grayscale and color flow Doppler ultrasound of the abdomen was performed. Liver: 16.8 cm span, borderline hepatomegaly. Normal parenchymal echogenicity. No intrahepatic mass or dilatation of the biliary tree. Main portal vein 1.1 cm, nondilated, normal hepatopetal flow. Spleen: 11.2 cm span, no splenomegaly. Biliary: Multiple small shadowing gallstones. No gallbladder wall thickening. Sonographic Pena sign negative. Common bile duct 0.8 cm, mildly dilated. Pancreas: Obscured by overlying bowel. Right kidney: 12.4 4.3 x 5.8 cm. Normal cortical echogenicity. No hydronephrosis or contour deforming mass. Left kidney: 12.2 x 4.8 x 5.1 cm. Normal cortical echogenicity. No hydronephrosis or contour deforming mass. Vessels: Aorta and IVC are partially obscured by bowel. Visualized portions unremarkable. Ascites: None IMPRESSION: 1. Cholelithiasis with no wall thickening or sonographic evidence for cholecystitis. 2. Mild dilatation of the extrahepatic common bile duct measuring 8 mm. In view of small gallstones, this may be further evaluated with MRCP examination to exclude choledocholithiasis. 3. No intrahepatic mass or dilatation of intrahepatic biliary tree. Signed by: Dr. Lonnie Whitley M.D. on 09/09/2018 10:22 AM
[2018-09-09] MEDS: SUCRALFATE 1 GM/10 ML SUSP NG SCH ×3 (11:30→19:30)
[2018-09-09] MEDS: INSULIN LISPRO 100 UNIT/1 ML 3ML VIAL SQ SCH ×3 (11:30→20:50)
[2018-09-09] MEDS: MORPHINE SULFATE INJ 4 MG/ML INJ 1ML IV PRN (11:41)
[2018-09-09] MEDS: POLYETHYLENE GLYCOL 3350 17 GM PACK PO SCH (12:30)
--- NOTE | 2018-09-09 14:20 | History and Physical ---
PRIMARY CARE PHYSICIAN: Dr. Alexander Gold. LEAD BUSINESS ANALYST: Dr. Yann Colon. CHIEF COMPLAINT: Abdominal pain with elevation of liver enzymes. SUMMARY: The patient is 63-year-old female, recently started on metformin approximately two or three weeks ago, came in with abdominal pain. On workup of abdominal pain, the patient found to have very elevated liver enzymes, AST of 883, ALT of 473, total bilirubin of 2.0. The patient also had BUN and creatinine of 28 and 1.3. The patient otherwise stable. Blood sugar 115. CT scan of abdomen and pelvis was negative. The patient is without any abdominal pain at this time. She does not have any nausea or vomiting. The patient is stable. No history of traveling. No history of liver problem. The patient is not an alcohol drinker. She is stable at this time. PAST MEDICAL HISTORY: Diabetes type 2, recently started on metformin. Hypertension, obesity, dyslipidemia. PAST SURGICAL HISTORY: 1. Abdominal hysterectomy. 2. Appendectomy. SOCIAL HISTORY: The patient does not smoke or use alcohol. No recreational drug use. ALLERGIES: TO NORVASC. HOME MEDICATIONS: She is on clonidine 0.2 mg three times a day, lisinopril 20 mg twice a day, metformin 500 mg twice a day, and metoprolol 100 mg twice a day. REVIEW OF SYSTEMS: No nausea or vomiting. No abdominal pain. No bloating. No rectal bleed. No chest pain. PHYSICAL EXAMINATION: VITAL SIGNS: Temperature is 98, blood pressure 120/63, pulse rate is 45-60. GENERAL: The patient is in no acute distress. HEENT: Normocephalic, atraumatic. Anicteric. NECK: Supple grossly. PULMONARY: Diminished breath sounds. CARDIOVASCULAR: Regular rate and rhythm to bradycardia. The patient is on metoprolol and clonidine. EXTREMITIES: No cyanosis or edema. ABDOMEN: Soft, nontender, and non-distention. NEUROLOGIC: No focal deficits. LABORATORY DATA: Sodium is 140, potassium 4.3, chloride 107, bicarb 23, BUN is 28, creatinine 1.3, glucose 115. Total bilirubin is 2, AST is 883, ALT is 479, alkaline phosphatase is 141. Coagulation is normal. WBC is 6.4, hemoglobin 11.5, hematocrit 35.3, and platelet is 221. Urinalysis is otherwise many bacteria without leukocyte esterase. There is positive nitrite. CT scan abdomen and pelvis is benign. IMPRESSION: 1. Elevation of liver enzymes, could be secondary to hypotensive episode, bradycardia secondary to medication induced. 2. Baseline hypertension with low heart rate, on beta-olamide and clonidine. PLAN: Continue with same home medication with adjustment. Blood pressure control. Repeated lab work. MRCP. Consultation with Dr. Yann Colon. Hepatitis profile. MD TAVIA Arnett/DAVID /[id number]
--- NOTE | 2018-09-09 14:30 | Diagnostic Imaging Report ---
EXAM: MR Abdomen WITHOUT Contrast Magnetic Resonance Cholangiopancreatography (M.R.C.P.) INDICATION: ^ELEVATED LFT'S, RUQ/WALTER ABD PAIN COMPARISON: CT abdomen and pelvis 09/08/2018. ABDOMINAL ULTRASOUND 09/09/2018. TECHNIQUE: Multiplanar and multisequence imaging was performed of the abdomen without contrast. T1-weighted, T2-weighted images, T1-weighted in and [id number], and Diffusion weighted images. Multiplanar, multisequence MRCP was performed, with sequences including coronal turbo spin-echo T1-weighted scans, [facility] MRCP scans, coronal spin, coronal MPR 2, SMRCP 3D HR, [facility] MRCP GRAY. Additional 3-D thin and thick slab MRCP sequences with rotation were performed by the technologist on the scanner workstation. IV Contrast: None Oral Contrast: None Medications: None COMPLICATIONS: None FINDINGS: LOWER THORAX: Unremarkable. HEPATOBILIARY: No focal hepatic lesions. Intrahepatic biliary dilatation. Common bile duct is dilated measuring 1.2 cm in diameter with gradual tapering at the ampulla of Vater. Common bile duct measures 1.2 cm, previously 0.8 cm. GALLBLADDER: There are stones in the gallbladder. No wall thickening. SPLEEN: No splenomegaly. PANCREAS: No focal masses or ductal dilatation. Pancreatic duct measures 0.1 cm. ADRENALS: No adrenal nodules KIDNEYS/URETERS: No hydronephrosis. 1.3 cm simple cyst in the medial interpolar region of the left kidney. No stones. GI TRACT: No abnormal distention, wall thickening, or evidence of bowel obstruction. Appendix is not visualized. LYMPH NODES: No lymphadenopathy. VESSELS: Unremarkable. PERITONEUM / RETROPERITONEUM: No free air or fluid. BONES: Unremarkable. SOFT TISSUES: Unremarkable. IMPRESSION: 1. Cholelithiasis without evidence of acute cholecystitis. 2. Common bile duct is dilated up to 1.2 cm, previously 0.8 cm. There is gradual tapering into the pancreatic head. This suggests possible recent passage of stone. No definite obstructive intraductal stone or pancreatic head mass. Signed by: Dr. Oh Mendez M.D. on 09/09/2018 2:26 PM
--- NOTE | 2018-09-09 15:26 | NUR ---
spoke with dr ibanez re: consult will see patient later
--- NOTE | 2018-09-09 16:17 | NUR ---
spoke with dr garcia re: mrcp report, no new orders at this time
[2018-09-09] MEDS: PANTOPRAZOLE SOD 40 MG TABEC PO SCH (16:30)
--- NOTE | 2018-09-09 17:31 | Consultation ---
DATE OF CONSULTATION: 09/09/2018 GI Consult Note REASON FOR CONSULT: 1. Acute biliary colic. 2. Acutely abnormal liver enzymes. HISTORY OF PRESENTING ILLNESS: A 63-year-old very pleasant female with a past medical history of hypertension, hyperlipidemia, prediabetes, got admitted with acute onset of recurrent epigastric right upper quadrant pain associated with some nausea, pain is 8/10 in intensity for the last two days. The patient has no prior history of any peptic ulcer disease. No prior history of any gallstones. In the emergency room, she was afebrile, hemodynamically stable. Blood work revealed significantly elevated liver enzymes. CT scan of the abdomen and pelvis done with IV contrast showed extensive sigmoid diverticulosis, gallstones, but no biliary ductal dilatation. Subsequently, she has had upper ultrasound that showed cholelithiasis without any gallbladder wall thickening. Mild dilatation of extrahepatic bile duct measuring about 8 mm. MRCP recommended. The patient's amylase and lipase level was noted normal. REVIEW OF SYSTEMS: A 12-point system reviewed, symptomatology is limited as per HPI. PAST MEDICAL HISTORY: Hypertension, hyperlipidemia, obesity, prediabetes. PAST SURGICAL HISTORY: Total abdominal hysterectomy. FAMILY HISTORY: Noncontributory. SOCIAL HISTORY: No smoking, alcohol, or any illicit drug use. ALLERGIES: AMLODIPINE. HOME MEDICATIONS: Clonidine, lisinopril, metformin, metoprolol. INPATIENT MEDICATION: List reviewed. The patient is currently on intravenous piperacillin. She is also getting sucralfate along with other medication. PHYSICAL EXAMINATION: VITAL SIGNS: Temperature 96.8, pulse 50, respirations 18, blood pressure 170/74 to 138/63, oxygen saturation 98% on room air. GENERAL: Not in any acute distress, obese body habitus. HEENT: Oral mucosa is moist. Anicteric sclerae. CVS: S1, S2 regular. LUNGS: Bilaterally grossly clear. ABDOMEN: Obese. Palpable right upper quadrant and epigastric tenderness on deep palpation without rebound, rigidity, or guarding. Positive bowel sounds. EXTREMITIES: Warm. No leg edema. LABORATORY DATA: Sodium 145, potassium 4.0, chloride 107, bicarb 25, BUN 22, creatinine 1.53 which is up from 1.31. Liver enzymes showed bilirubin has gone down to 1.6 from 2.0, AST down to 355 from 883, ALT down to 406 from 479, alkaline phosphatase down to 136 from 141. Ultrasound of the abdomen showed a cholelithiasis, mild dilatation of extrahepatic common bile duct measuring about 8 mm. In the view of small gallstone, this may be further evaluated with MRCP. CT scan of the abdomen and pelvis with IV contrast showed sigmoid diverticulosis without any diverticulitis, interval resolution of previous enteritis, no radiopaque stones or sludge seen. No wall thickening. No focal hepatic lesion. No biliary ductal dilatation. MRCP ordered, result pending. ASSESSMENT: Acute abnormal liver enzymes likely due to retained or passage of common bile duct stone. The patient's biliary colic is due to the same. The patient does not have any evidence of ascending cholangitis at this time. She has no fever, no white count. PLAN: Continue IV antibiotic. Discontinue sucralfate. IV fluids. We will wait for MRCP report. If MRCP shows retained stone, then obviously the patient will need ERCP. If MRCP is negative, then the patient can proceed with cholecystectomy directly. Surgery needs to be consulted. I thank Dr. Hollis for allowing me to participate in the care of this patient. Tereso Muir MD SA/DAVID /[id number]
[2018-09-09] MEDS: SENNA-S TABLET PO SCH (19:30)
[2018-09-09] MEDS ORDERED: SODIUM CHLORIDE 0.9% 1000ML 1,000 ML IV SCH (22:22)
[2018-09-09] MEDS: SODIUM CHLORIDE 0.45% 1,000 ML IV SCH (22:45)
--- NOTE | 2018-09-09 23:52 | Consultation ---
DATE OF CONSULTATION: 09/09/2018 CHIEF COMPLAINT: Abdominal pain. HISTORY OF PRESENT ILLNESS: The patient is a 63-year-old female admitted with epigastric abdominal pain, nausea, and vomiting. The patient is found to have elevated liver enzyme and gallstones seen on ultrasound of the gallbladder without wall thickening. However, dilated common bile duct was noted. MRCP was done showing no bile duct stone. PAST MEDICAL HISTORY: Positive for metabolic syndrome. SURGICAL HISTORY: Positive for hysterectomy and appendectomy. SOCIAL HABITS: No smoking or alcohol abuse. REVIEW OF SYSTEMS: No chest pain. No shortness of breath. PHYSICAL EXAMINATION: VITAL SIGNS: Stable, afebrile. GENERAL: She is awake, alert, in mild discomfort. HEENT: Sclerae anicteric. NECK: Supple. LUNGS: Clear. HEART: Regular rate and rhythm. ABDOMEN: Soft. Mild guarding in the epigastric area. No rebound. EXTREMITIES: No cyanosis or edema. LABORATORY DATA: White cell count of 6, hemoglobin of 10, and platelet count is 185. Creatinine 1.5. Liver function tests; bilirubin 1.6, alkaline phosphatase 136, and ALT at 406. Lipase is 30. INR of 0.8. As mentioned, the MRCP show gallstones without bile duct stone, but bile duct is 1.2 cm in size. ASSESSMENT: Cholelithiasis and probable cholecystitis with recent passage of stone through the duct. PLAN: Laparoscopy cholecystectomy. Attendant risks have been discussed. Marcos Ruiz MD DNMarv/MODL /[id number]
[2018-09-10] VITALS (9 sets, daily range): BP systolic 156–202; BP diastolic 71–90
[2018-09-10] MEDS: PIPER-TAZ 3.375 GM 50 ML IV SCH ×4 (05:09→23:52)
--- NOTE | 2018-09-10 05:35 | NUR ---
Called Dr. Meño Hollis for new Rx order regarding patient's BP at 170/75. Patient refused to take PO medication for concern for abdominal pain. Dr. Hollis stated he will the patient this morning whether to give PO or order IV to manage the patient's BP.
[2018-09-10 07:19] LABS: ALBUMIN 3.5 g/dL (3.5-5.0); ALBUMIN/GLOBULIN RATIO 0.9 (0.8-2.0); ANION GAP 15.9 mmol/L (8-16); CALCIUM 9.6 mg/dL (8.4-10.2); CREATININE, SERUM 1.63 mg/dL (0.57-1.11); POTASSIUM 3.9 mmol/L (3.5-5.1)
[2018-09-10] MEDS: INSULIN LISPRO 100 UNIT/1 ML 3ML VIAL SQ SCH ×4 (07:30→20:23)
[2018-09-10] MEDS: SUCRALFATE 1 GM/10 ML SUSP NG SCH ×4 (07:30→21:06)
[2018-09-10] MEDS: PANTOPRAZOLE SOD 40 MG TABEC PO SCH ×2 (07:30→16:30)
[2018-09-10] MEDS ORDERED: NIFEDIPINE CR 30 MG TAB PO ONE (08:30)
[2018-09-10] MEDS: POLYETHYLENE GLYCOL 3350 17 GM PACK PO SCH (09:00)
--- NOTE | 2018-09-10 10:30 | NUR ---
SITTING IN BS CHAIR, CALL LIGHT WITHIN REACH
[2018-09-10] MEDS: SODIUM CHLORIDE 0.45% 1,000 ML IV SCH ×2 (10:40→17:30)
[2018-09-10] MEDS ORDERED: BUPIVACAINE 0.5%/EPI 30 ML SDV INJ ONE (11:05)
[2018-09-10] MEDS ORDERED: IOPAMIDOL 200 MG/ML 20 ML VIAL IT ONE (11:06)
[2018-09-10] MEDS ORDERED: IOPAMIDOL 610MG/1ML 300 MG/ML VIAL IV ONE (11:10)
[2018-09-10] MEDS: HYDRALAZINE HCL 20 MG/ML VIAL IV PRN ×3 (11:29→23:52)
[2018-09-10] MEDS: NEBIVOLOL 10 MG TAB PO SCH (12:00)
--- NOTE | 2018-09-10 12:53 | NUR ---
ALEXA RN PICKING UP PT FOR SURGERY MADE AWARE OF ELEVATED BP AND MEDS THAT HAVE ALREADY BEEN GIVEN, VERBALIZED UNDERSTANDING, WHEELED OFF UNIT VIA STRETCHER FOR OR, NO CHANGE IN CONDITION, FAMILY AT SIDE
[2018-09-10] MEDS ORDERED: NICARDIPINE HCL SOLN 10 ML ONE (13:34)
--- NOTE | 2018-09-10 15:10 | NUR ---
Attempted to see pt. Pt in OR for lap shekhar.
[2018-09-10] MEDS ORDERED: ONDANSETRON HCL INJ 2MG/ML 2ML 2 MG/ML VIAL ONE ×2 (17:01→20:03)
--- NOTE | 2018-09-10 17:03 | NUR ---
BACK IN ROOM VIA STRETCHER, AWAKENS EASILY TO VOICE, 2L NC IN PLACE, 6 TROCAR SITES WITH BAND AIDS, SMALL DRIED DRAINAGE MARKED, R SIDE OSCAR WITH SCANT AMOUNT OF BLOODY DRAINAGE NOTED, DRESSING INTACT , TEJADA TO BSD SUDHIR SCD'S IN PLACE, CONNECTED TO PUMP, DENIES PAIN AT THIS TIME, PT COMPLAIN OF NAUSEA, PER PACU NURSE "JUST MEDICATED FOR NAUSEA", CALL LIGHT WITHIN REACH, FAMILY AT SIDE
--- NOTE | 2018-09-10 17:30 | NUR ---
REFUSED 1630 PM MEDS AT THIS TIME DUE TO NAUSEA
--- NOTE | 2018-09-10 18:18 | NUR ---
TOLERATING FEW ICE CHIPS AT THIS TIME, DENIES NAUSEA A THIS TIME, DENIES PAIN, CALL LIGHT WITHIN REACH
--- NOTE | 2018-09-10 18:33 | NUR ---
BP ELEVATED SINCE ARRIVAL BACK TO UNIT, TRENDING DOWN AT THIS TIME, PT AWAKENS TO VOICE, DENIES PAIN AT THIS TIME, CALL LIGHT WITHIN REACH
[2018-09-10] MEDS ORDERED: FENTANYL CITRATE/PF 100MCG/2 ML INJ ONE (19:24)
[2018-09-10] MEDS ORDERED: MIDAZOLAM HCL 2 MG/2 ML VIAL ONE (19:24)
[2018-09-10] MEDS: MORPHINE SULFATE INJ 4 MG/ML INJ 1ML IV PRN (19:38)
[2018-09-10] MEDS: ONDANSETRON HCL 4 MG ORAL DISINTEGRATING TAB PO PRN (19:38)
[2018-09-10] MEDS ORDERED: SEVOFLURANE INHAL SOLN 250 ML PEN BTL ONE (20:03)
[2018-09-10] MEDS ORDERED: DEXAMETHASONE SOD PHOS INJ 4 MG/ML VIAL ONE (20:03)
[2018-09-10] MEDS ORDERED: ACETAMINOPHEN 1000 MG/100 ML IV ONE (20:03)
[2018-09-10] MEDS ORDERED: GLYCOPYRROLATE INJ 1MG/ 5 ML SYR ONE (20:03)
[2018-09-10] MEDS ORDERED: ROCURONIUM BROMIDE 10 MG/ML 5ML VIAL ONE (20:03)
[2018-09-10] MEDS ORDERED: LIDOCAINE HCL 2% LOCAL INJ 5 ML SDV VIAL INJ ONE (20:03)
[2018-09-10] MEDS ORDERED: LABETALOL HCL 5 MG/ML 20ML VIAL ONE (20:03)
[2018-09-10] MEDS ORDERED: NEOSTIGMINE 5 MG/5ML SYR ONE (20:03)
[2018-09-10] MEDS ORDERED: PROPOFOL IV EMULSION 10 MG/ML 20 ML VIAL ONE (20:03)
[2018-09-10] MEDS ORDERED: LISINOPRIL-HCT1 EAC1 (21:04)
[2018-09-10] MEDS ORDERED: CLONIDINE HCL0.3 MG PO (21:05)
[2018-09-10] MEDS: HYDRALAZINE HCL 25 MG TAB PO PRN (21:06)
[2018-09-10] MEDS: SENNA-S TABLET PO SCH (21:06)
--- NOTE | 2018-09-10 21:32 | NUR ---
PATIENT'S BP CONTINUES TO BE ELEVATED REGARDLESS TAKING HYDRALAZINE IV AND PO. PATIENT PROVIDED MEDICATION BOTTLES TO CORRECT THE DOSE AND FREQUENCY TAKEN AT HOME. CALLED DR. CERRATO TO INFORM ABOUT THE PATIENT'S ELEVATED BP TO DISCUSS HOW TO CONTROL BP. DR. LOPEZ WANT TO DO THE MRCP TOMORROW TO REMOVE THE STONE FROM THE BILE DUCT BUT ONLY IF THE BP IS UNDER CONTROL. CONTINUE TO MONITOR BP AND GIVE PRN MEDICATIONS
[2018-09-11] VITALS (10 sets, daily range): BP systolic 132–187; BP diastolic 58–80
[2018-09-11] MEDS: MORPHINE SULFATE INJ 4 MG/ML INJ 1ML IV PRN ×2 (00:40→09:47)
[2018-09-11] MEDS: ONDANSETRON HCL 4 MG ORAL DISINTEGRATING TAB PO PRN ×2 (00:40→09:47)
--- NOTE | 2018-09-11 02:03 | Progress Note ---
DATE: 09/10/2018 GI Progress Report SUBJECTIVE: The patient has had a laparoscopic cholecystectomy successfully today. She ended up getting a OSCAR drain. Intraoperative cholangiogram was positive for a retained common bile duct stone. REVIEW OF SYSTEMS: GENERAL: No fever or chills. CVS: No chest pain or palpitation. RESPIRATORY: No cough or expectoration. MEDICATIONS: Reviewed as per LEIGH. She is getting intravenous Zosyn and morphine for pain control. She is also on other medications. OBJECTIVE: VITAL SIGNS: Temperature 98.2, pulse 75, respirations 16, blood pressure 185/79, oxygen saturation 93% on 2 L of nasal cannula. GENERAL: Obese body habitus, appears to be in some distress secondary to pain. HEENT: Oral mucosa is moist. Icteric sclerae. ABDOMEN: Soft. Incisional tenderness. OSCAR drain with a small amount of serosanguineous fluid. Bowel sounds absent. LABORATORY DATA: WBC 6.24, hemoglobin 10.5, hematocrit 31.9, and platelet count 185. Electrolytes normal. Total bilirubin 2.0, AST 180, down from 355; ALT 329, down from 406; alkaline phosphatase 151 from 136. Intraoperative cholangiogram report is not available. ASSESSMENT: Biliary colic, status post cholecystectomy for acute cholelithiasis/cholecystitis. Liver enzymes continues to be elevated, although it is trending down. The patient underwent laparoscopic cholecystectomy today. Intraoperative cholangiogram is showing retained stone in the distal common bile duct. PLAN: Postoperative care as per Surgery. Maintain n.p.o. after midnight. I was told that the patient has been allowed to clear liquids after surgery. ERCP tomorrow. This was discussed with Dr. Ruiz. Tereso Muir MD SA/DAVID /[id number]
[2018-09-11] MEDS: SODIUM CHLORIDE 0.45% 1,000 ML IV SCH ×2 (04:30→10:30)
[2018-09-11] MEDS: PIPER-TAZ 3.375 GM 50 ML IV SCH ×4 (05:04→23:15)
[2018-09-11] MEDS ORDERED: NIFEDIPINE CR 30 MG TAB PO SCH (06:00)
[2018-09-11 06:24] LABS: ALBUMIN 3.1 g/dL (3.5-5.0); ALBUMIN/GLOBULIN RATIO 0.8 (0.8-2.0); ANION GAP 15.8 mmol/L (8-16); CREATININE, SERUM 1.62 mg/dL (0.57-1.11); POTASSIUM 3.8 mmol/L (3.5-5.1)
[2018-09-11] MEDS: HYDRALAZINE HCL 20 MG/ML VIAL IV PRN ×2 (07:03→18:43)
--- NOTE | 2018-09-11 07:24 | NUR ---
Rcvd patient in report this am. Patient is awake in bed at this time. Patient is NPO at this time.
[2018-09-11] MEDS: SUCRALFATE 1 GM/10 ML SUSP NG SCH (07:30)
[2018-09-11] MEDS: INSULIN LISPRO 100 UNIT/1 ML 3ML VIAL SQ SCH ×4 (07:30→21:00)
[2018-09-11] MEDS: PANTOPRAZOLE SOD 40 MG TABEC PO SCH (07:30)
[2018-09-11] MEDS ORDERED: METOPROLOL TARTRATE INJ 1 MG/ML VIAL IV PRN (08:30)
[2018-09-11] MEDS: NEBIVOLOL 10 MG TAB PO SCH (09:00)
--- NOTE | 2018-09-11 09:34 | Diagnostic Imaging Report ---
ADDENDUM #1 ADDENDUM: Comparison study was MRCP dated 09/09/2018, not 09/10/2018. Signed by: Dr. Callum Cr MD on 09/11/2018 4:08 PM ORIGINAL REPORT EXAM: Intraoperative cholangiogram INDICATION: Evaluate for stone MRCP 09/10/2018 RADIATION DOSE: Fluoroscopy Time: 22 seconds Total dose: 7.3 mGy Dose area product: 114.5 cGycm2 Technique: Intraoperative cholangiography images were provided for Radiology interpretation. Findings: The cystic duct was cannulated. The common bile duct visually appears distended although cannot be measured on the provided images. The common bile duct is opacified to the distal portion. However no opacification is present in the distal most common bile duct with an associated filling defect. No contrast is demonstrated to pass into the duodenum. FINDINGS: ERCP demonstrating common bile duct dilatation with distal filing defect and no passage of contrast into the duodenum. Findings are suspicious for stone. Signed by: Dr. Callum Cr MD on 09/11/2018 9:30 AM
[2018-09-11] MEDS ORDERED: CLONIDINE HCL 0.2 MG/24 HR 1 EA PATCH TOP SCH (10:00)
--- NOTE | 2018-09-11 11:56 | NUR ---
Patient is AAOx3. Patient is post op lap shekhar. Trochar sites clean and dry. Lung núñez clear to auscultation. Bowel sounds present x4 but hypoactive. Patient states she is passing gas. PRN pain meds given. Right forearm IV in place. IV fluids infusing. Patient is NPO for ERCP today. Family at bedside
[2018-09-11] MEDS: PANTOPRAZOLE 40 MG 10ML VIAL IV SCH (12:10)
[2018-09-11] MEDS ORDERED: IOPAMIDOL 610MG/1ML 300 MG/ML VIAL IV ONE (12:42)
--- NOTE | 2018-09-11 13:34 | NUR ---
Patient went to surgery at this time. Patient assisted down via surgical nurse in bed.
[2018-09-11] MEDS ORDERED: ROCURONIUM BROMIDE 10 MG/ML 5ML VIAL ONE (14:12)
[2018-09-11] MEDS ORDERED: LIDOCAINE HCL 2% LOCAL INJ 5 ML SDV VIAL INJ ONE (14:12)
[2018-09-11] MEDS ORDERED: DEXAMETHASONE SOD PHOS INJ 4 MG/ML VIAL ONE (14:12)
[2018-09-11] MEDS ORDERED: DIPHENHYDRAMINE HCL INJ 50 MG/ML VIAL ONE (14:12)
[2018-09-11] MEDS ORDERED: PROPOFOL IV EMULSION 10 MG/ML 20 ML VIAL ONE (14:12)
[2018-09-11] MEDS ORDERED: SEVOFLURANE INHAL SOLN 250 ML PEN BTL ONE (14:12)
[2018-09-11] MEDS ORDERED: GLYCOPYRROLATE INJ 1MG/ 5 ML SYR ONE (14:12)
[2018-09-11] MEDS ORDERED: ONDANSETRON HCL INJ 2MG/ML 2ML 2 MG/ML VIAL ONE (14:12)
[2018-09-11] MEDS ORDERED: PHENYLEPHRINE HCL 1% 10 MG/ML VIAL ONE (14:12)
[2018-09-11] MEDS ORDERED: NEOSTIGMINE 5 MG/5ML SYR ONE (14:12)
[2018-09-11] MEDS ORDERED: GLUCAGON FOR INJ 1 MG VIAL ONE (14:14)
[2018-09-11] MEDS ORDERED: INDOMETHACIN 50 MG SUPP.RECT RC ONE (15:13)
[2018-09-11] MEDS ORDERED: MIDAZOLAM HCL 2 MG/2 ML VIAL ONE (15:23)
[2018-09-11] MEDS ORDERED: FENTANYL CITRATE/PF 100MCG/2 ML INJ ONE (15:23)
[2018-09-11] MEDS ORDERED: HYDRALAZINE HCL 20 MG/ML VIAL ONE (16:02)
--- NOTE | 2018-09-11 16:24 | NUR ---
Patient returned from surgery at this time. Patient is awake but drowsy. No c/o pain. Patient able to have clear liquids at this time.
[2018-09-11] MEDS: HYDRALAZINE HCL 25 MG TAB PO PRN (21:07)
[2018-09-12] MEDS: SODIUM CHLORIDE 0.45% 1,000 ML IV SCH ×3 (00:30→23:19)
[2018-09-12 04:00] VITALS: BP 124/57
[2018-09-12] MEDS: PIPER-TAZ 3.375 GM 50 ML IV SCH ×4 (05:38→23:19)
[2018-09-12 06:18] LABS: BASOPHILS % 0.2 % (0.0-1.0); EOSINOPHILS # (AUTO) 0.1 (0.0-0.4); EOSINOPHILS % 0.4 % (0.0-6.0); HEMATOCRIT 33.4 % (34.2-44.1); HEMOGLOBIN 10.7 g/dL (12.0-16.0); LYMPHOCYTES # (AUTO) 1.4 (1.0-3.2); LYMPHOCYTES % 11.4 % (18.0-39.1); MEAN CORPUSCULAR HEMOGLOBIN 30.1 pg (28-32); MEAN CORPUSCULAR VOLUME 93.8 fL (81-99); MONOCYTES # (AUTO) 1.1 (0.2-0.8); MONOCYTES % 8.6 % (4.4-11.3); NEUTROPHILS # (AUTO) 9.8 (2.1-6.9); NEUTROPHILS % 78.9 % (38.7-80.0); PLATELET COUNT 191 x10e3/uL (140-360); RED BLOOD COUNT 3.56 x10e6/uL (3.6-5.1)
[2018-09-12 06:29] LABS: ALBUMIN/GLOBULIN RATIO 0.8 (0.8-2.0); ANION GAP 15.5 mmol/L (8-16); CALCIUM 9.5 mg/dL (8.4-10.2); CREATININE, SERUM 2.13 mg/dL (0.57-1.11); POTASSIUM 4.5 mmol/L (3.5-5.1)
[2018-09-12 06:55] LABS: BILIRUBIN,DIRECT 0.7 mg/dL (0.0-0.5)
--- NOTE | 2018-09-12 07:20 | NUR ---
Rcvd patient in report this am. Patient is asleep in bed at this time. No s/s of distress noted
[2018-09-12] MEDS: INSULIN LISPRO 100 UNIT/1 ML 3ML VIAL SQ SCH ×4 (07:30→20:48)
[2018-09-12 08:03] VITALS: BP 170/71
[2018-09-12] MEDS: PANTOPRAZOLE 40 MG 10ML VIAL IV SCH (08:14)
[2018-09-12] MEDS: HYDRALAZINE HCL 25 MG TAB PO PRN (08:14)
[2018-09-12] MEDS: NEBIVOLOL 10 MG TAB PO SCH (08:14)
--- NOTE | 2018-09-12 08:43 | Diagnostic Imaging Report ---
ERCP Indication: Choledocholithiasis. Technique: Fluoroscopic assistance was provided for ERCP under the direction of Tereso Muir. Multiple spot images were obtained. Report of procedure not provided. Comparison: Intraoperative cholangiogram 09/10/2018 RADIATION DOSE: Fluoroscopy Time: 00:01:07 min Dose (Kerma) Area Product: 877.48 microGycm2 Air Kerma (AK) value has been reviewed. It is below the limits set by the Radiation Protocol Committee (RPC) committee Findings: A wire is inserted into the common bile duct followed by injection of contrast material. There is diffuse distention of the common bile duct with a subtle intraluminal filling defect in the distal common bile duct. Multiple balloon sweeps were performed. The right and left common hepatic ducts are well-distended. The visualized right intrahepatic ducts demonstrate no evidence of stricture or dilatation. The cystic duct is normal in morphology. IMPRESSION: 1. Intraluminal filling defect in the distal common bile duct suggestive of choledocholithiasis. 2. Balloon catheter used to remove calculus from the common duct. 3. Diffuse common bile duct distention without stricture. Signed by: Dr. Magdalene Hawk MD on 09/12/2018 8:39 AM
[2018-09-12 09:35] VITALS: BP 170/71
--- NOTE | 2018-09-12 09:50 | NUR ---
Removed genao at this time. Patient tolerated well. Tip intact. 150ml of dark urine noted. Patient due to void in 6-8 hours
--- NOTE | 2018-09-12 10:11 | NUR ---
CASE MANAGEMENT ASSESSMENT Block Hacker to bedside to discuss plan of care with patient/family. CM/SW role and care transitions discussed. Anticipated discharge plan discussed along with duration of care. CM/SW discussed patients right to make decisions in care. CM/SW work hours given. Patient lives: alone Admit/Transfer: thru ED Hospital/ER visits since last admit: 0 POA/Emergency contact: sister Thao Foster [phone] Current/Previous Home Health: none PCP/Follow-up Care: DR. Alexander Gold - PCP; pt states she will follow up with Dr. Hollis as instructed after discharge. Current/Previous DME: none Medications (referring to index hospitalization or the first time you were in the hospital) a. Were changes made in your medications when you were in the hospital on [date of index hospitalization]? n/a b. Did you understand the changes? n/a c. Were you able to obtain your new medications right away? n/a d. Were you able to take your medications like the doctor wanted you to? n/a e. Did the hospital give you an accurate, easy to understand list of medications when you left? n/a Scale of 1-10 how comfortable does patient feel with disease management in outpatient settin Other Services: none Employment Status: employed with [employer] Areas of Concerns: abdominal pain Referral Needs: none Education Needs: medical management IMM/DOWD given and signed (if applicable): none at this time Goal for discharge: home CM/SW left business card at the bedside with contact information. Name and number was also written on the patients whiteboard. Patient verbalized understanding of discussion. CM will follow-up with ongoing discharge and transition of care needs.
--- NOTE | 2018-09-12 11:35 | Progress Note ---
DATE: 09/12/2018 SUBJECTIVE: The patient reports significant improvement in abdominal pain. No more nauseous. Tolerating full liquid diet. REVIEW OF SYSTEMS: GENERAL: No fever or chills. CVS: No chest pain, palpitation. RESPIRATORY: No cough or expectoration. MEDICATIONS: Reviewed as per the MAR. The patient is getting intravenous Zosyn, intravenous pantoprazole along with other medications. She is getting morphine for pain control. OBJECTIVE: VITAL SIGNS: Temperature 97, pulse 75, respirations 18, blood pressure 170/71, oxygen saturation 97% on 2 L of nasal cannula. GENERAL: Not in any acute distress. HEENT: Oral mucosa is moist. Anicteric sclerae. CVS: S1, S2. Regular. LUNGS: Bilaterally grossly clear. ABDOMEN: Soft. Right upper quadrant incisional tenderness. No rebound, rigidity, or guarding. Bowel sounds hypoactive. EXTREMITIES: Warm. No leg edema. LABORATORY DATA: WBC has gone to 12.39 from 6.24, hemoglobin 10.7 from 10.5, hematocrit 33.4 from 31.9, and platelet count 191. Liver enzymes showed a total bilirubin 1.2 from 1.2, AST 53 from 54, ALT 161 from 161, alkaline phosphatase 129 from 122. IMPRESSION: 1. Acute cholecystitis/cholelithiasis, status post cholecystectomy, postoperative day #2. 2. Choledocholithiasis with abnormal liver enzymes, intraoperative cholangiogram showed small retained common bile duct stone. The patient underwent ERCP and sphincterotomy and stone removal yesterday. PLAN: Postoperative care as per Surgery. Continue to advance the diet as tolerated. Switch PPI from IV to oral. The patient's white count is elevated, seems like it is more reactive. The patient is already on intravenous antibiotic. Tereso Muir MD SA/DAVID /[id number]
[2018-09-12 12:00] VITALS: BP 145/64
--- NOTE | 2018-09-12 14:34 | NUR ---
Patient voided at this time. Patient states she has voided multiple times
[2018-09-12 16:00] VITALS: BP 141/63
[2018-09-12 20:42] VITALS: BP 131/61
[2018-09-13] VITALS (7 sets, daily range): BP systolic 109–143; BP diastolic 60–80
[2018-09-13] MEDS: PIPER-TAZ 3.375 GM 50 ML IV SCH ×3 (06:17→17:47)
[2018-09-13] MEDS: SODIUM CHLORIDE 0.45% 1,000 ML IV SCH ×2 (06:30→11:32)
[2018-09-13 06:43] LABS: BASOPHILS % 0.3 % (0.0-1.0); EOSINOPHILS # (AUTO) 0.6 (0.0-0.4); EOSINOPHILS % 4.5 % (0.0-6.0); HEMATOCRIT 30.7 % (34.2-44.1); HEMOGLOBIN 9.6 g/dL (12.0-16.0); LYMPHOCYTES # (AUTO) 1.5 (1.0-3.2); LYMPHOCYTES % 11.3 % (18.0-39.1); MEAN CORPUSCULAR HEMOGLOBIN 29.4 pg (28-32); MEAN CORPUSCULAR HGB CONC 31.3 g/dL (31-35); MEAN CORPUSCULAR VOLUME 93.9 fL (81-99); MONOCYTES # (AUTO) 0.8 (0.2-0.8); MONOCYTES % 6.2 % (4.4-11.3); NEUTROPHILS # (AUTO) 9.9 (2.1-6.9); PLATELET COUNT 211 x10e3/uL (140-360); RED BLOOD COUNT 3.27 x10e6/uL (3.6-5.1); RED CELL DISTRIBUTION WIDTH 12.9 % (11.7-14.4)
[2018-09-13 07:06] LABS: ALBUMIN 2.8 g/dL (3.5-5.0); ALBUMIN/GLOBULIN RATIO 0.8 (0.8-2.0); ANION GAP 15.1 mmol/L (8-16); CREATININE, SERUM 2.05 mg/dL (0.57-1.11); POTASSIUM 4.1 mmol/L (3.5-5.1)
--- NOTE | 2018-09-13 07:35 | NUR ---
PT SITTING IN BS CHAIR, C/O NAUSEA AND "SOME DIZZINESS", REFUSING AM MEDICATION AT THIS TIME, REFUSING NAUSEA MED AT THIS TIME
[2018-09-13] MEDS: INSULIN LISPRO 100 UNIT/1 ML 3ML VIAL SQ SCH ×4 (08:30→21:00)
--- NOTE | 2018-09-13 09:37 | NUR ---
IMM letter delivered and explained to pt. She verbalized understanding. Signed copy placed in chart. Copy to pt. Anticipate discharge tomorrow. Received home health order from Dr. Hollis. Spoke to pt regarding home health. She stated to use any company that takes her insurance. Choice letter signed for [facility] staff, Michael, and Sudarshan and placed in chart. Copy given to pt.
[2018-09-13] MEDS: NEBIVOLOL 10 MG TAB PO SCH (10:00)
[2018-09-13] MEDS: PANTOPRAZOLE SOD 40 MG TABEC PO SCH (10:00)
--- NOTE | 2018-09-13 10:00 | NUR ---
PT UNABLE TO TAKE AM MEDICATIONS AT SCHEDULED TIMES THIS AM DUE TO NAUSEA, PT TOLERATED AT THIS TIME
--- NOTE | 2018-09-13 12:36 | NUR ---
Home health referral was faxed to [facility] at [phone] / P [phone].
--- NOTE | 2018-09-13 16:30 | NUR ---
Called [facility] and spoke to Kathy with intake. She stated they are accepting pt. Will schedule her tentatively to be seen on Sunday. Informed pt of above. Mirlande taylor provided to pt. [facility] Staff
--- NOTE | 2018-09-13 22:05 | NUR ---
NO RESPIRATORY DISTRESS OBSERVED, PATIENT DENIES PAIN. HER SISTER IS VISITING WITH HER, PATIENT INSTRUCTED TO CALL FOR ASSISTANCE NEEDED.
--- NOTE | 2018-09-13 22:47 | Progress Note ---
DATE: 09/13/2018 SUBJECTIVE: The patient reports one episode of nausea with bilious vomiting x1 this morning. After that, she was able to eat her breakfast, lunch. She is complaining of incisional pain. Passing flatus. She has had a bowel movement x2 with a brown liquidy stool. REVIEW OF SYSTEMS: GENERAL: No fever or chills. CARDIOVASCULAR SYSTEM: No chest pain, palpitation. RESPIRATORY: No cough or expectoration. INPATIENT MEDICATIONS: Reviewed as per JUL. She is on intravenous piperacillin tazobactam, pantoprazole, along with other medication. PHYSICAL EXAMINATION: VITAL SIGNS: Temperature 98.2, pulse 50, respirations 18, blood pressure 133/60, and oxygen saturation 98% on room air. GENERAL: Not in any acute distress. HEENT: Oral mucosa is moist. ABDOMEN: Soft. Palpable incisional tenderness on right upper quadrant. No rebound, rigidity, or guarding. Bowel sounds hypoactive. LABORATORY DATA: WBC 12.88 down from 12.39, hemoglobin 9.6, hematocrit 30.7, MCV 93.9, and platelet count 211. Sodium 138, potassium 4.1, chloride 106, bicarb 21, BUN 44, creatinine 2.05 down from 2.13, glucose 131. Liver enzymes AST is down to 33 from 53, ALT down to 104 from 161, total bilirubin 0.8 from 1.2, alkaline phosphatase 102 from 129. ASSESSMENT: Biliary colic status post cholecystectomy for acute cholelithiasis/cholecystitis. Liver enzymes continue to be elevated, although it is trending down. The patient underwent a laparoscopic cholecystectomy. Intraoperative cholangiogram is showing retained stone in the distal common bile duct. PLAN: LFTs have significantly gone down, almost near normalization. Postop care as per Surgery. Continue oral diet. The patient can go home from GI standpoint. She has my business card. I will follow her in my office within two weeks post discharge. Surgical pathology of the gallbladder is awaited. Tereso Muir MD SA/DAVID /[id number]
[2018-09-14] VITALS: BP 159/67
[2018-09-14] MEDS: PIPER-TAZ 3.375 GM 50 ML IV SCH ×2 (00:29→06:29)
[2018-09-14] MEDS: MORPHINE SULFATE INJ 4 MG/ML INJ 1ML IV PRN (00:29)
--- NOTE | 2018-09-14 00:31 | NUR ---
PATIENT ASSISTED TO THE RESTROOM, SHE'S NOW BACK IN BED AND C/O PAIN TO THE ABDOMEN WITH PAIN SCORE #3. MORPHINE ADMINISTERED ORDERED, CALL LIGHT WITHIN EASY REACH, WILL MONITOR CLOSELY.
--- NOTE | 2018-09-14 03:12 | NUR ---
PATIENT IS ASLEEP, SHE'S EASY TO AROUSE. NO RESPIRATORY DISTRESS, CALL LIGHT WITHIN EASY REACH.
[2018-09-14 04:00] VITALS: BP 142/67
[2018-09-14] MEDS: SODIUM CHLORIDE 0.45% 1,000 ML IV SCH ×3 (06:28→17:50)
[2018-09-14] MEDS: INSULIN LISPRO 100 UNIT/1 ML 3ML VIAL SQ SCH ×4 (07:30→21:33)
[2018-09-14] MEDS: PANTOPRAZOLE SOD 40 MG TABEC PO SCH (08:30)
[2018-09-14 08:40] VITALS: BP 155/65
[2018-09-14 08:43] VITALS: BP 155/65
--- NOTE | 2018-09-14 08:45 | NUR ---
MD CERRATO INTO SEE PT, DISCUSSED POC
[2018-09-14] MEDS: NEBIVOLOL 10 MG TAB PO SCH (09:00)
[2018-09-14] MEDS: HYDRALAZINE HCL 25 MG TAB PO SCH ×3 (10:30→21:33)
--- NOTE | 2018-09-14 10:43 | NUR ---
MD ADAMSON INTO SEE PT, DISCUSSED POC
[2018-09-14] MEDS: LEVOFLOXACIN 500 MG TAB PO SCH (13:27)
[2018-09-14 17:20] VITALS: BP 167/71
[2018-09-14 20:00] VITALS: BP 178/74
--- NOTE | 2018-09-14 20:47 | NUR ---
PATIENT ASSISTED TO THE RESTROOM, SHE'S INSTRUCTED TO CALL FOR ASSISTANCE UPON COMPLETION SO THAT SHE CAN BE ASSISTED TO THE BED.
[2018-09-15] VITALS (7 sets, daily range): BP systolic 132–170; BP diastolic 58–75
--- NOTE | 2018-09-15 00:15 | NUR ---
RESTING IN BED WITHOUT RESPIRATORY DISTRESS, PATIENT DENIES PAIN. CALL LIGHT WITHIN EASY REACH, SHE'S INSTRUCTED TO CALL FOR ASSISTANCE NEEDED.
--- NOTE | 2018-09-15 05:05 | NUR ---
ASSISTED PATIENT TO THE RESTROOM AND SHE'S NOW BACK IN BED. SHE C/O MILD PAIN TO THE ABDOMEN BUT REFUSED MORPHINE WHEN OFFER. SHE STATED "I WILL WAIT AND GET AN ORAL PAIN MEDICATION."
[2018-09-15] MEDS: HYDRALAZINE HCL 25 MG TAB PO SCH ×3 (06:00→22:00)
[2018-09-15 06:40] LABS: BASOPHILS % 0.4 % (0.0-1.0); EOSINOPHILS # (AUTO) 0.4 (0.0-0.4); HEMATOCRIT 24.5 % (34.2-44.1); HEMOGLOBIN 7.9 g/dL (12.0-16.0); LYMPHOCYTES # (AUTO) 1.4 (1.0-3.2); LYMPHOCYTES % 16.3 % (18.0-39.1); MEAN CORPUSCULAR HEMOGLOBIN 29.7 pg (28-32); MEAN CORPUSCULAR HGB CONC 32.2 g/dL (31-35); MEAN CORPUSCULAR VOLUME 92.1 fL (81-99); MONOCYTES # (AUTO) 0.7 (0.2-0.8); MONOCYTES % 7.9 % (4.4-11.3); NEUTROPHILS # (AUTO) 5.8 (2.1-6.9); NEUTROPHILS % 69.8 % (38.7-80.0); PLATELET COUNT 179 x10e3/uL (140-360); RED BLOOD COUNT 2.66 x10e6/uL (3.6-5.1); RED CELL DISTRIBUTION WIDTH 12.8 % (11.7-14.4)
[2018-09-15 07:04] LABS: ANION GAP 13.2 mmol/L (8-16); CALCIUM 9.1 mg/dL (8.4-10.2); CREATININE, SERUM 1.16 mg/dL (0.57-1.11); POTASSIUM 4.2 mmol/L (3.5-5.1)
[2018-09-15] MEDS: INSULIN LISPRO 100 UNIT/1 ML 3ML VIAL SQ SCH ×4 (07:30→21:00)
[2018-09-15] MEDS: PANTOPRAZOLE SOD 40 MG TABEC PO SCH (07:30)
[2018-09-15] MEDS: SODIUM CHLORIDE 0.45% 1,000 ML IV SCH (07:59)
[2018-09-15] MEDS: ONDANSETRON HCL 4 MG ORAL DISINTEGRATING TAB PO PRN (08:36)
--- NOTE | 2018-09-15 08:37 | NUR ---
Received patient this morning, a/ox3, no neuro deficits noted, denies dizziness but c/o some nausea and medicated PRN with Zofran, OSCAR drain in place, pains well managed and call light within reach, will monitor
[2018-09-15] MEDS: NEBIVOLOL 10 MG TAB PO SCH (09:25)
[2018-09-15] MEDS: LEVOFLOXACIN 500 MG TAB PO SCH (09:33)
[2018-09-15] MEDS ORDERED: DIPHENHYDRAMINE HCL 25 MG CAP PO SCH (11:45)
--- NOTE | 2018-09-15 12:18 | NUR ---
Patient alert and responsive, rounds by attending and orders in place for Venofer IV Q12 and clarified with attending and he wants it that way. Also informed for orders to manage pain orally and will put order in place.
[2018-09-15] MEDS ORDERED: ACETAMINOPHEN 325 MG TAB PO ONE (12:30)
--- NOTE | 2018-09-15 14:05 | NUR ---
Visit made by the Spiritual Care Department Pastoral Visitor, Bronwyn Smiley. PV provided pastoral presence, prayer, communion, hospitality, and supportive listening. Pastoral Visitor informed pt/family of the scope of Practice Billing Associate Services and availability. ISABEL CRESPO [employer] Spiritual Care Department O: [phone] Pager: [phone] ([phone] number calling from)
[2018-09-15] MEDS: IRON SUCROSE 100 MG in SODIUM CHLORIDE 0.9% 100 ML 100 ML IV SCH (14:20)
--- NOTE | 2018-09-15 20:40 | NUR ---
PATIENT SITTING AT THE SIDE OF THE BED, NO ACUTE DISTRESS OBSERVED AND SHE DENIES PAIN. FAMILY MEMBERS VISITING WITH HER, SHE'S INSTRUCTED TO CALL FOR ASSISTANCE NEEDED.
[2018-09-16] VITALS (7 sets, daily range): BP systolic 104–183; BP diastolic 55–77
[2018-09-16] MEDS: IRON SUCROSE 100 MG in SODIUM CHLORIDE 0.9% 100 ML 100 ML IV SCH ×2 (01:20→12:52)
--- NOTE | 2018-09-16 01:20 | NUR ---
PATIENT C/O SEVERE BURNING AND PAINFUL SENSATION WHILE FLUSHING BOTH IV'S TO THE RIGHT FOREARM. IV REMOVED WITH TIP INTACT, IV#22 GAUGE INSERTED TO THE LEFT HAND AND PATIENT TOLERATED PROCEDURE WELL.
--- NOTE | 2018-09-16 04:44 | NUR ---
ASSISTED PATIENT WITH ADLS, SHE'S SITTING UP AT THE SIDE OF BED. CALL LIGHT WITHIN EASY REACH, SHE'S INSTRUCTED TO CALL FOR ASSISTANCE NEEDED.
[2018-09-16] MEDS: HYDRALAZINE HCL 25 MG TAB PO SCH ×2 (06:20→14:10)
[2018-09-16 06:46] LABS: BASOPHILS % 0.3 % (0.0-1.0); EOSINOPHILS # (AUTO) 0.5 (0.0-0.4); HEMATOCRIT 26.9 % (34.2-44.1); HEMOGLOBIN 8.4 g/dL (12.0-16.0); LYMPHOCYTES # (AUTO) 1.4 (1.0-3.2); LYMPHOCYTES % 15.1 % (18.0-39.1); MEAN CORPUSCULAR HEMOGLOBIN 29.2 pg (28-32); MEAN CORPUSCULAR HGB CONC 31.2 g/dL (31-35); MEAN CORPUSCULAR VOLUME 93.4 fL (81-99); MONOCYTES # (AUTO) 0.8 (0.2-0.8); MONOCYTES % 8.7 % (4.4-11.3); NEUTROPHILS # (AUTO) 6.4 (2.1-6.9); NEUTROPHILS % 70.2 % (38.7-80.0); PLATELET COUNT 225 x10e3/uL (140-360); RED BLOOD COUNT 2.88 x10e6/uL (3.6-5.1); RED CELL DISTRIBUTION WIDTH 12.9 % (11.7-14.4)
[2018-09-16 07:07] LABS: ANION GAP 11.7 mmol/L (8-16); CALCIUM 9.7 mg/dL (8.4-10.2); CREATININE, SERUM 1.13 mg/dL (0.57-1.11); POTASSIUM 3.7 mmol/L (3.5-5.1)
[2018-09-16] MEDS: INSULIN LISPRO 100 UNIT/1 ML 3ML VIAL SQ SCH ×3 (07:30→16:13)
[2018-09-16] MEDS ORDERED: FUROSEMIDE INJ 10 MG/ML 4 ML VIAL IV ONE (08:15)
[2018-09-16] MEDS ORDERED: POTASSIUM CHLORIDE 10MEQ EA PO ONE (08:15)
[2018-09-16] MEDS: PANTOPRAZOLE SOD 40 MG TABEC PO SCH (08:40)
[2018-09-16] MEDS: NEBIVOLOL 10 MG TAB PO SCH (08:40)
--- NOTE | 2018-09-16 11:49 | NUR ---
SPOKE WITH MD ADAMSON , STATES PT CAN GO HOME. ASKED TO REMOVED OSCAR DRAIN. ORDERS RECEIVED
[2018-09-16] MEDS ORDERED: LOPRESSOR25 MG PO (11:55)
[2018-09-16] MEDS ORDERED: HYDRALAZINE HCL25 MG PO (11:55)
[2018-09-16] MEDS ORDERED: TYLENOL WITH C1 EACH PO (11:56)
[2018-09-16] MEDS ORDERED: ZOFRAN4 MG PO (11:56)
[2018-09-16] MEDS ORDERED: HEMOCYTE PLUS1 EACH (11:56)
[2018-09-16] MEDS: LEVOFLOXACIN 500 MG TAB PO SCH (12:52)
--- NOTE | 2018-09-16 12:56 | NUR ---
OSCAR DRAIN REMOVED PER MD ADAMSON ORDERS, PT TOLERATED WELL PT DC INSTRUCTIONS AND PRESCRIPTIONS GIVEN , PT VERBALIZED UNDERSTANDING IRON INFUSION RUNNING PT IS READY FOR DC AFTER TRANSFUSION COMPLETE
--- NOTE | 2018-09-16 13:56 | NUR ---
iron infusion complete . iv dc pressure dressing applied and taped pt is ready for dc. pt is waiting on ride home
--- NOTE | 2018-09-16 16:25 | NUR ---
pt off unit to home via wheel chair
--- NOTE | 2018-09-17 03:52 | Discharge Summary ---
PRIMARY CARE PHYSICIAN: Dr. Alexander Gold. CONSULTANTS: 1. Dr. Yann Colon and Dr. Muir, Gastroenterology. 2. Dr. Marcos Ruiz. FINAL DIAGNOSES: 1. Acute non-infectious hepatitis secondary to gallstone and common bile duct stone obstruction. 2. Acute cholecystitis with gallstones, status post laparoscopic cholecystectomy with intraoperative cholangiogram, positive for common bile duct stone. 3. Status post ERCP for common bile duct stone removal. 4. Blunt anemia with acute blood loss anemia, postoperative care. SUMMARY: 63-year-old female with severe elevation of liver enzymes. The patient had multiple tests done, inconclusive regarding the common bile duct stone. Therefore, the patient underwent laparoscopic cholecystectomy. During the surgery, the patient had a cholangiogram done. Cholangiogram is positive for common bile duct stone. Postoperatively, the patient subsequently underwent ERCP done by Dr. Muir. The common bile duct stone was removed. The patient is stable. She had OSCAR drain in place. She had some blood loss anemia along with blunt anemia. The patient did not require blood transfusion, but did receive Venofer iron infusion. The patient received 300 mg total dosing prior to her discharge. The patient is stable, tolerated the procedure well. The patient will receive IV Lasix. During hospitalization, she was also noticed to have significant bradycardia as well taking both previously prior to admission, clonidine and metoprolol. The patient's blood pressure medication has been adjusted. On going home, the patient will stop the clonidine and the metoprolol 100 mg. She will continue with the lisinopril, hydrochlorothiazide, and held metformin for diabetes. New prescription is Lopressor 50 mg twice a day. Hydralazine 100 mg q.8 hours, Tylenol No. 3 p.r.n. for pain. Zofran ODT for nausea. Hemocyte Plus one tab daily. The patient to follow up with her family doctor, Dr. Marcos Ruiz in approximately one week. The patient is otherwise stable. Discharged home today. MD TAVIA Arnett/MODL /[id number]
--- NOTE | 2018-11-13 13:52 | Operative Report ---
DATE OF PROCEDURE: 09/10/2018 SURGEON: Marcos Ruiz MD PREOPERATIVE DIAGNOSIS: Cholecystitis. POSTOPERATIVE DIAGNOSIS: Cholecystitis. OPERATIVE PROCEDURE: Laparoscopic cholecystectomy and intraoperative cholangiogram. ANESTHESIA: General. INDICATION FOR SURGERY: This patient is a 63-year-old female with history of epigastric pain. The patient was found to have gallstone with elevated liver enzymes. The patient consented for laparoscopic cholecystectomy and intraoperative cholangiogram. PROCEDURE FINDING: Distal bile duct stone. DESCRIPTION OF PROCEDURE: The patient was brought to the OR, intubated, abdomen prepped and draped in sterile fashion. An infraumbilical incision was made and a 10 mm port inserted. Insufflation began under direct vision, the port sites placed in the right upper quadrant and mid epigastric area. The gallbladder appeared acutely inflamed and distended. Retracting in cephalad direction, the gallbladder retracted laterally. With blunt and sharp dissection, we isolated out the cystic artery and cystic duct and clearly visualized the common bile duct junction. Cystic artery divided between clips. Cystic duct was isolated and clipped high on the infundibulum of the gallbladder. We then made a radial transverse incision in the cystic duct and a cholangiogram catheter was inserted and clamped in place. Intraoperative cholangiogram was carried out with half-strength radiopaque contrast. The cholangiogram showed evidence of distal bile duct obstruction. At this point, the catheter was removed from the cystic duct which was then triple clipped. The cystic duct was divided above the clips and the gallbladder detached from the liver with cautery and taken out through umbilical incision, operative field then irrigated, hemostasis was achieved. A drain was placed in the Gomez pouch and taken out through the right upper quadrant port site. All other ports removed. Fascia closure with 0 Vicryl. Skin was closed with subcuticular stitch. The patient was extubated and transported to recovery room. ESTIMATED BLOOD LOSS: 20 mL. Marcos Ruiz MD DNL/MODL /[id number]
== END 2018-09-16 16:20 | disposition home or self-care (01) | DRG 418 ==
LOC: ER 12:44 → ERHOLD 18:32 → MED/SURG 18:53 → OBSVTOIN 09-10 08:28
PROVIDERS: ADMIT Internal Medicine; ATTEND Internal Medicine
PROC: 0FT44ZZ Resection of Gallbladder, Percutaneous Endoscopic Approach (ICD-10-PCS; 2018-09-10)
PROC: BF101ZZ Fluoroscopy of Bile Ducts using Low Osmolar Contrast (ICD-10-PCS; 2018-09-10)
PROC: BF131ZZ Fluoroscopy of Gallbladder and Bile Ducts using Low Osmolar Contrast (ICD-10-PCS; 2018-09-11)
PROC: 0FC98ZZ Extirpation of Matter from Common Bile Duct, Via Natural or Artificial Opening Endoscopic (ICD-10-PCS; principal; 2018-09-11 14:34)
DX: K80.62 Calculus of gallbladder and bile duct with acute cholecystitis without obstruction (principal); B17.9 Acute viral hepatitis, unspecified; D62 Acute posthemorrhagic anemia; I10 Essential (primary) hypertension; E66.01 Morbid (severe) obesity due to excess calories; Z68.37 Body mass index [BMI] 37.0-37.9, adult; R00.1 Bradycardia, unspecified
CPT/HCPCS: 36415; 43260; 71045; 74177; 74181; 74300; 74328; 76700; 80048; 80053; 80076; 81001; 82150; 82550; 82553; 82948; 83690; 84484; 85025; 85610; 85730; 88304; 93005; 96367; 96372; 96376; 97139; 99284; G0378; J0360; J1100; J1200; J1610; J1756; J1940; J2001; J2250; J2270; J2370; J2405; J2543; J3010; J7030; J7040; Q0162; Q9967

== ENCOUNTER 2018-09-20 10:12 | Emergency (ER) | payer OTHER ==
[~2018-09-20] VITALS: Ht 172.7 cm; Wt 112.9 kg
[~2018-09-20 10:12] MED LIST changes: +CLONIDINE HCL0.3 MG PO; +HEMOCYTE PLUS1 EACH; +HYDRALAZINE HCL25 MG PO; +LISINOPRIL-HCT1 EAC1; +LOPRESSOR25 MG PO; +METFORMIN HCL500 MG PO; +METOPROLOL TART50 MG PO; +TYLENOL WITH C1 EACH PO; +ZOFRAN4 MG PO
[2018-09-20] MEDS ORDERED: SODIUM CHLORIDE 0.9% 500ML 500 ML IV STA (10:28)
[2018-09-20] MEDS ORDERED: FAMOTIDINE 20 MG/2 ML VIAL IV STA (10:28)
[2018-09-20] MEDS ORDERED: METHYLPREDNISOLONE SOD SUCC 125 MG/2ML VIAL IV STA (10:28)
[2018-09-20] MEDS ORDERED: DIPHENHYDRAMINE HCL INJ 50 MG/ML VIAL IV ONE (10:30)
[2018-09-20 12:45] VITALS: BP 171/67
--- NOTE | 2018-09-20 13:44 | NUR ---
Voicemail left on patients provided number and notified patient left her home medications here accidentally.
== END 2018-09-20 13:27 | disposition home or self-care (01) ==
LOC: ER 10:12
DX: T78.3XXA Angioneurotic edema, initial encounter (principal); I10 Essential (primary) hypertension; E11.9 Type 2 diabetes mellitus without complications
CPT/HCPCS: 99283; J1200; J2930; J7040

== ENCOUNTER 2020-12-04 09:34 | Emergency (ER) | payer OTHER ==
[~2020-12-04] VITALS: Ht 172.7 cm; Wt 112.9 kg
[2020-12-04] MEDS ORDERED: ONDANSETRON HCL INJ 2MG/ML 2ML 2 MG/ML VIAL IV STA (09:59)
[2020-12-04] MEDS ORDERED: SODIUM CHLORIDE 0.9% 1000ML 1,000 ML IV STA (09:59)
[2020-12-04 10:09] LABS: BASOPHILS % 0.1 % (0.0-1.0); EOSINOPHILS # (AUTO) 0.1 (0.0-0.4); EOSINOPHILS % 0.7 % (0.0-6.0); HEMOGLOBIN 12.9 g/dL (12.0-16.0); LYMPHOCYTES # (AUTO) 0.7 (1.0-3.2); LYMPHOCYTES % 8.8 % (18.0-39.1); MEAN CORPUSCULAR HGB CONC 32.3 g/dL (31-35); MONOCYTES # (AUTO) 0.7 (0.2-0.8); MONOCYTES % 7.9 % (4.4-11.3); NEUTROPHILS # (AUTO) 6.9 (2.1-6.9); PLATELET COUNT 257 x10e3/uL (140-360); RED CELL DISTRIBUTION WIDTH 13.4 % (11.7-14.4)
[2020-12-04 10:26] LABS: ALBUMIN 2.9 g/dL (3.5-5.0); ALBUMIN/GLOBULIN RATIO 0.6 (0.8-2.0); ANION GAP 18.1 mmol/L (8-16); CALCIUM 9.3 mg/dL (8.4-10.2); CREATININE, SERUM 1.82 mg/dL (0.57-1.11); MAGNESIUM 2.1 MG/DL (1.3-2.1); POTASSIUM 3.1 mmol/L (3.5-5.1)
[2020-12-04 10:33] LABS: CREATINE KINASE MB 1.6 ng/mL (0-5.0)
[2020-12-04] MEDS ORDERED: POTASSIUM CHLORIDE 20 MEQ TAB CR PO STA (11:31)
[2020-12-04] MEDS ORDERED: BAMLANIVIMAB IV ONE (12:00)
[2020-12-04] MEDS ORDERED: ETESEVIMAB IV ONE (12:00)
[2020-12-04 12:46] LABS: CLARITY,URINE CLOUDY (CLEAR); COLOR,URINE YELLOW (YELLOW); KETONES,URINE TRACE (NEGATIVE); LEUKOCYTE ESTERASE ,URINE MODERATE (NEGATIVE); NITRITE,URINE POSITIVE (NEGATIVE); PROTEIN,URINE DIPSTICK 2+ (NEGATIVE); URINE UROBILINOGEN 0.2 mg/dL (0.2 - 1)
[2020-12-04 12:56] LABS: BACTERIA,URINE MANY /HPF; EPITHELIAL CELLS,URINE RARE /LPF; RBC,URINE 0-5 /HPF (0-5); WBC,URINE (MAN) 21-50 /HPF (0-5)
[2020-12-04 12:57] LABS: MUCUS,URINE FEW (RARE)
[2020-12-04] MEDS ORDERED: CEFTRIAXONE 1 GM in SODIUM CHLORIDE 0.9% 50ML 50 ML IV ONE ×2 (14:30→15:00)
[2020-12-04 15:36] VITALS: BP 184/78
== END 2020-12-04 15:36 | disposition home or self-care (01) ==
LOC: ER 10:04
DX: U07.1 COVID-19 (principal); R11.10 Vomiting, unspecified; I12.9 Hypertensive chronic kidney disease with stage 1 through stage 4 chronic kidney disease, or unspecified chronic kidney disease; E11.22 Type 2 diabetes mellitus with diabetic chronic kidney disease; N18.9 Chronic kidney disease, unspecified; Z79.84 Long term (current) use of oral hypoglycemic drugs
CPT/HCPCS: 36415; 71045; 80053; 81001; 82550; 82553; 83735; 84484; 85025; 87086; 87186; 93005; 99284; C9113; J0696; J2405; J7030; U0002

== ENCOUNTER 2023-03-07 10:41 | Emergency (ER) | payer MEDICARE, OTHER ==
[~2023-03-07] VITALS: Ht 172.7 cm; Wt 99.8 kg
[2023-03-07] MEDS ORDERED: CLONIDINE HCL 0.1 MG TAB PO ONE (12:15)
[2023-03-07 12:55] VITALS: BP 230/87
[2023-03-07 14:05] VITALS: O2SAT 99
== END 2023-03-07 14:23 | disposition home or self-care (01) ==
LOC: ER 11:11
DX: I16.0 Hypertensive urgency (principal); I10 Essential (primary) hypertension; E11.9 Type 2 diabetes mellitus without complications; E78.5 Hyperlipidemia, unspecified; F41.9 Anxiety disorder, unspecified
CPT/HCPCS: 93005; 99283